=== PATIENT | female | born 1990 | race African-American/Black ===

== ENCOUNTER 2016-09-29 09:29 | Emergency (ER) | payer MEDICAID ==
[~2016-09-29] VITALS: Ht 154.9 cm; Wt 61.2 kg
[~2016-09-29 09:29] MED LIST: FAM-PREN FORTE1 CAP PO; LABETALOL HCL200 M1 PO; METOPROLOL50 M1 PO; ORETIC25 MG PO
[2016-09-29 09:36] VITALS: BP 111/80
--- NOTE | 2016-09-29 10:24 | NUR ---
PT TO BED 3 AT THIS TIME.
--- NOTE | 2016-09-29 10:43 | NUR ---
URINE DIPSTICK RESULT RELAYED TO DR SKINNER
--- NOTE | 2016-09-29 10:49 | NUR ---
PATIENT PRESENTS TO ED WITH C/O DYSURIA X1 DAY WITH LOWER BACK PAIN . PT STATES SHE HAS BURNING SENSATION WHEN SHE URINATES.DENIES N/V/D; SKIN IS PINK/WARM/DRY; AAOX4 WITH EVEN AND STEADY GAIT; LUNGS CLEAR BL; HR EVEN AND REGULAR; PT DENIES ANY FEVER, CP, SOB, OR COUGH AT THIS TIME; PATIENT STATES PAIN OF 8/10 AT THIS TIME;PATIENT POSITIONED FOR COMFORT; HOB ELEVATED; BEDRAILS UP X2; BED DOWN. NEEDS ATTENDED.ER MD MADE AWARE OF PT STATUS.
--- NOTE | 2016-09-29 10:55 | NUR ---
Patient being evaluated by DR SKINNER at bedside.
--- NOTE | 2016-09-29 11:25 | NUR ---
Patient discharged with v/s stable. Written and verbal after care instructions given and explained. Patient alert, oriented and verbalized understanding of instructions. Ambulatory with steady gait. All questions addressed prior to discharge. ID band removed. Patient advised to follow up with PMD. Rx of PYRIDIUM AND CIPRO given. Patient educated on indication of medication including possible reaction and side effects. Opportunity to ask questions provided and answered.
[2016-09-29 11:26] VITALS: BP 111/80
== END 2016-09-29 11:25 | disposition home or self-care (01) ==
LOC: MED 09:29
DX: N39.0 Urinary tract infection, site not specified (principal); I10 Essential (primary) hypertension; Z88.6 Allergy status to analgesic agent; Z88.2 Allergy status to sulfonamides; Z88.1 Allergy status to other antibiotic agents

== ENCOUNTER 2016-12-12 17:37 | Emergency (ER) | payer MEDICAID ==
[~2016-12-12] VITALS: Ht 154.9 cm; Wt 61.2 kg
[~2016-12-12 17:37] MED LIST changes: -FAM-PREN FORTE1 CAP PO; -LABETALOL HCL200 M1 PO; +METO50TA69 PO; -METOPROLOL50 M1 PO; -ORETIC25 MG PO
[2016-12-12 17:46] VITALS: BP 133/88
--- NOTE | 2016-12-12 20:01 | NUR ---
PATIENT LEFT WITHOUT BEING SEEN BY DR. TERRELL. NO FURTHER CARE PROVIDED FOR PATIENT.
== END 2016-12-12 20:01 | disposition left against medical advice (07) ==
LOC: MED 17:37
DX: R06.02 Shortness of breath (principal); Z53.21 Procedure and treatment not carried out due to patient leaving prior to being seen by health care provider

== ENCOUNTER 2017-04-23 19:00 | Emergency (ER) | payer MEDICAID ==
[~2017-04-23] VITALS: Ht 154.9 cm; Wt 65.1 kg
[2017-04-23 19:29] VITALS: BP 128/82
--- NOTE | 2017-04-23 19:53 | NUR ---
PT TAKEN TO CT FROM THE LOBBY
[2017-04-23 20:02] LABS: APPEARANCE,URINE CLEAR (CLEAR); BILIRUBIN,URINE NEGATIVE (NEGATIVE); BLOOD, URINE NEGATIVE (NEGATIVE); COLOR,URINE YELLOW (YELLOW); LEUKOCYTE ESTERASE ,URINE NEGATIVE (NEGATIVE); NITRITE, URINE NEGATIVE (NEGATIVE); PH,URINE 8.5 (5.0-9.0); UGLUCOSE NEGATIVE (NEGATIVE)
[2017-04-23 20:20] LABS: BASOPHILS # (AUTO) 0.1 K/uL (0.00-0.22); BASOPHILS % (AUTO) 1.3 % (0.0-2.0); EOSINOPHILS # (AUTO) 0.1 K/uL (0-0.4); HEMATOCRIT 42.5 % (36-48); HEMOGLOBIN 14.1 g/dL (12.0-16.0); LYMPHOCYTES # (AUTO) 1.1 K/uL (2.5-16.5); LYMPHOCYTES % (AUTO) 27.4 % (20.5-51.1); MEAN CORPUSCULAR HEMOGLOBIN 32 pg (27-31); MEAN CORPUSCULAR HGB CONC 33 g/dL (33-37); MEAN CORPUSCULAR VOLUME 95 fL (80-94); MONOCYTES # (AUTO) 0.4 K/uL (0.8-1.0); MONOCYTES % (AUTO) 9.1 % (1.7-9.3); NEUTROPHILS # (AUTO) 2.4 K/uL (1.8-7.7); NEUTROPHILS % (AUTO) 60.2 % (42.2-75.2); PLATELET COUNT (AUTO) 110 K/uL (140-450); RED BLOOD CELL COUNT(AUTO) 4.47 MIL/uL (4.20-5.40); RED CELL DISTRIBUTION WIDTH 13.4 % (11.6-13.7); WHITE BLOOD COUNT (AUTO) 4.1 K/uL (4.8-10.8)
[2017-04-23 20:34] LABS: ANION GAP 14.7 (8-16); POTASSIUM 3.7 mmol/L (3.5-5.1)
[2017-04-23 20:42] LABS: ALBUMIN 4.3 g/dL (3.4-5.0); TOTAL BILIRUBIN 0.4 mg/dL (0.0-1.0)
--- NOTE | 2017-04-23 21:41 | NUR ---
PT TAKEN TO BED 4
[2017-04-23] MEDS ORDERED: MORPHINE SULFATE 4 MG/ML SYR IM ONE (22:05)
--- NOTE | 2017-04-23 22:33 | NUR ---
Dr. San evaluating patient at bedside.
[2017-04-23 23:05] VITALS: BP 124/78
--- NOTE | 2017-04-23 23:07 | NUR ---
Patient discharged with v/s stable. Written and verbal after care instructions given and explained. Patient alert, oriented and verbalized understanding of instructions. Ambulatory with to home. All questions addressed prior to discharge. ID band removed. Patient advised to follow up with PMD. Rx of given. Patient educated on indication of medication including possible reaction and side effects. Opportunity to ask questions provided and answered.
== END 2017-04-23 23:07 | disposition home or self-care (01) ==
LOC: MED 19:00
DX: N83.202 Unspecified ovarian cyst, left side (principal); Z88.6 Allergy status to analgesic agent; Z88.1 Allergy status to other antibiotic agents; Z88.8 Allergy status to other drugs, medicaments and biological substances; I10 Essential (primary) hypertension
CPT/HCPCS: 36415; 74176; 80053; 81003; 81025; 83690; 85025; 96372; 99285; J2270

== ENCOUNTER 2017-11-14 06:42 | Emergency (ER) | payer OTHER, MEDICAID ==
[~2017-11-14] VITALS: Ht 154.9 cm; Wt 65.8 kg
[~2017-11-14 06:42] MED LIST changes: +METO50TA20 PO; -METO50TA69 PO
[2017-11-14 06:45] VITALS: BP 135/94
--- NOTE | 2017-11-14 06:53 | NUR ---
Patient ambulated to bed 4. RN evaluating patient at bedside.
--- NOTE | 2017-11-14 06:55 | NUR ---
PATIENT IS A 26 Y/O FEMALE WHO PRESENTS TO THE ED C/O SORETHROAT. PT REPORTS RIGHT PINKEYE WITH D/C. PT REPORTS 8/10 ACHING EYE AND THROAT PAIN THAT DOES NOT RADIATE. PT DENIES CP, SOB, N/V/D. NOTED D/C TO RIGHT EYE. PT AAOX4, RR EVEN/UNLABORED. PT REPOSITIONED FOR COMFORT, BED IN LOWEST POSITION. ER MD DR. AIKEN NOTIFIED. WILL CONTINUE TO MONITOR.
[2017-11-14 07:26] VITALS: BP 133/85
--- NOTE | 2017-11-14 07:26 | NUR ---
Patient discharged with v/s stable. Written and verbal after care instructions given and explained. Patient alert, oriented and verbalized understanding of instructions. Ambulatory with steady gait. All questions addressed prior to discharge. ID band removed. Patient advised to follow up with PMD. Rx of CODEINE, CIPROFLOXACIN OPHTHALMIC SOLUTION, AND AMOXICILLIN 500 MG given. Patient educated on indication of medication including possible reaction and side effects. Opportunity to ask questions provided and answered.
== END 2017-11-14 07:26 | disposition home or self-care (01) ==
LOC: MED 06:42
DX: J03.90 Acute tonsillitis, unspecified (principal); H10.9 Unspecified conjunctivitis; I10 Essential (primary) hypertension; Z88.1 Allergy status to other antibiotic agents; Z88.6 Allergy status to analgesic agent
CPT/HCPCS: 99283

== ENCOUNTER 2017-11-21 20:23 | Emergency (ER) | payer OTHER, MEDICAID ==
[~2017-11-21] VITALS: Ht 154.9 cm; Wt 65.8 kg
[2017-11-21 20:32] VITALS: BP 125/77
--- NOTE | 2017-11-21 20:39 | NUR ---
to jake, a/w bed and for xray, via w/cloreto ermd noted
--- NOTE | 2017-11-21 20:44 | NUR ---
PATIENT WHEELED TO CHAIR B
[2017-11-21] MEDS ORDERED: fentaNYL 0.05 MG/ML VIAL IM ONE (21:15)
--- NOTE | 2017-11-21 21:23 | NUR ---
PATIENT TO XRAY
[2017-11-21 22:51] VITALS: BP 125/77
== END 2017-11-21 22:51 | disposition home or self-care (01) ==
LOC: MED 20:23
DX: S83.91XA Sprain of unspecified site of right knee, initial encounter (principal); I10 Essential (primary) hypertension; Z79.899 Other long term (current) drug therapy; Z88.2 Allergy status to sulfonamides; Z88.8 Allergy status to other drugs, medicaments and biological substances; W50.0XXA Accidental hit or strike by another person, initial encounter; Y93.89 Activity, other specified; Y92.89 Other specified places as the place of occurrence of the external cause; Y99.8 Other external cause status
CPT/HCPCS: 73562; 73660; 96372; 99284; J3010

== ENCOUNTER 2017-12-17 23:17 | Emergency (ER) | payer OTHER, MEDICAID ==
[~2017-12-17] VITALS: Ht 154.9 cm; Wt 64.6 kg
[2017-12-17 23:24] VITALS: BP 110/80
--- NOTE | 2017-12-17 23:30 | NUR ---
27 Y/O F W/C/O LOW BACK PAIN X TODAY. PT DENIES ANY DYSURIA, FEVER OR CHILLS. ER MADE AWARE.
[2017-12-17] MEDS ORDERED: ACETAMINOPHEN EXTRA STRENGTH 500 MG TAB PO ONE (23:40)
[2017-12-18 00:05] VITALS: BP 110/80
--- NOTE | 2017-12-18 00:05 | NUR ---
Patient discharged with v/s stable. Written and verbal after care instructions given and explained. Patient alert, oriented and verbalized understanding of instructions. Ambulatory with steady gait. All questions addressed prior to discharge. ID band removed. Patient advised to follow up with PMD. Rx of TYLENOL WITH CODEINE, AND MACROBID given. Patient educated on indication of medication including possible reaction and side effects. Opportunity to ask questions provided and answered.
[2017-12-18 00:19] LABS: APPEARANCE,URINE SL CLOUDY (CLEAR); BILIRUBIN,URINE NEGATIVE (NEGATIVE); BLOOD, URINE NEGATIVE (NEGATIVE); COLOR,URINE YELLOW (YELLOW); LEUKOCYTE ESTERASE ,URINE NEGATIVE (NEGATIVE); NITRITE, URINE NEGATIVE (NEGATIVE); PH,URINE 6.5 (5.0-9.0); UGLUCOSE NEGATIVE (NEGATIVE)
== END 2017-12-18 00:05 | disposition home or self-care (01) ==
LOC: MED 23:17
DX: M54.5 Low back pain (principal); R10.9 Unspecified abdominal pain; I10 Essential (primary) hypertension; Z88.6 Allergy status to analgesic agent; Z88.2 Allergy status to sulfonamides; Z88.8 Allergy status to other drugs, medicaments and biological substances; Z98.890 Other specified postprocedural states
CPT/HCPCS: 81003; 81025; 99283

== ENCOUNTER 2018-08-19 12:14 | Emergency (ER) | payer MEDICAID, OTHER ==
[~2018-08-19] VITALS: Ht 154.9 cm; Wt 59.0 kg
[2018-08-19 12:24] VITALS: BP 113/80
[2018-08-19] MEDS ORDERED: KETOROLAC 60 MG/2 ML VIAL IM ONE (13:25)
[2018-08-19 14:41] VITALS: BP 116/88
== END 2018-08-19 14:41 | disposition home or self-care (01) ==
LOC: MED 12:14
DX: S93.402A Sprain of unspecified ligament of left ankle, initial encounter (principal); I10 Essential (primary) hypertension; Z88.8 Allergy status to other drugs, medicaments and biological substances; W01.0XXA Fall on same level from slipping, tripping and stumbling without subsequent striking against object, initial encounter; Y93.89 Activity, other specified; Y92.89 Other specified places as the place of occurrence of the external cause; Y99.8 Other external cause status
CPT/HCPCS: 73610; 81025; 96372; 99283; J1885

== ENCOUNTER 2018-12-25 20:27 | Emergency (ER) | payer MEDICAID ==
[~2018-12-25] VITALS: Ht 154.9 cm; Wt 65.8 kg
[2018-12-25 20:31] VITALS: BP 160/98
--- NOTE | 2018-12-25 20:31 | NUR ---
TO BED # 08 AMBULATORY
--- NOTE | 2018-12-25 20:32 | NUR ---
BIB SELF WITH C/O HEADACHE AND BODY ACHES SINCE YESTERDAY. DENIES FEVERS, COUGH, NVD. SPEECH CLEAR, PERRL. BED IN LOW LOCKED POSITION. PATIENT POSITIONED FOR COMFORT. ERMD AWARE.
--- NOTE | 2018-12-25 20:37 | NUR ---
DR ROSEN AT BEDSIDE.
[2018-12-25] MEDS ORDERED: fentaNYL 0.05 MG/ML VIAL IM ONE (20:40)
[2018-12-25] MEDS ORDERED: methylPREDNISolone SS 125 MG/2 ML VIAL IM ONE (20:40)
[2018-12-25 21:46] VITALS: BP 142/95
--- NOTE | 2018-12-25 21:47 | NUR ---
Patient discharged with v/s stable. Written and verbal after care instructions given and explained. Patient alert, oriented and verbalized understanding of instructions. Ambulatory with steady gait. All questions addressed prior to discharge. ID band removed. Patient advised to follow up with PMD. Rx of TRAMADOL, PREDNISONE given. Patient educated on indication of medication including possible reaction and side effects. Opportunity to ask questions provided and answered.
== END 2018-12-25 21:47 | disposition home or self-care (01) ==
LOC: MED 20:27
DX: M32.9 Systemic lupus erythematosus, unspecified (principal); I10 Essential (primary) hypertension; Z88.1 Allergy status to other antibiotic agents; Z88.2 Allergy status to sulfonamides; Z88.8 Allergy status to other drugs, medicaments and biological substances
CPT/HCPCS: 96372; 99283; J2930; J3010

== ENCOUNTER 2019-03-12 22:40 | Emergency (ER) | payer MEDICAID ==
[~2019-03-12] VITALS: Ht 154.9 cm; Wt 66.2 kg
[2019-03-12 22:47] VITALS: BP 130/76
[2019-03-13 00:47] LABS: APPEARANCE,URINE CLEAR (CLEAR); BILIRUBIN,URINE NEGATIVE (NEGATIVE); BLOOD, URINE NEGATIVE (NEGATIVE); COLOR,URINE YELLOW (YELLOW); LEUKOCYTE ESTERASE ,URINE NEGATIVE (NEGATIVE); NITRITE, URINE NEGATIVE (NEGATIVE); UGLUCOSE NEGATIVE (NEGATIVE)
[2019-03-13 00:56] LABS: RBC,URINE 0-5 /HPF (0-5); WBC,URINE 0-5 /HPF (0-5)
[2019-03-13 01:05] VITALS: BP 128/72
== END 2019-03-13 01:05 | disposition left against medical advice (07) ==
LOC: MED 22:40
DX: M79.10 Myalgia, unspecified site (principal); I10 Essential (primary) hypertension; M32.9 Systemic lupus erythematosus, unspecified; Z88.6 Allergy status to analgesic agent; Z88.8 Allergy status to other drugs, medicaments and biological substances; Z88.1 Allergy status to other antibiotic agents
CPT/HCPCS: 81001; 81025; 87086; 99283

== ENCOUNTER 2019-04-03 20:41 | Emergency (ER) | payer MEDICAID ==
[~2019-04-03] VITALS: Ht 154.9 cm; Wt 66.2 kg
[2019-04-03 20:49] VITALS: BP 130/89
--- NOTE | 2019-04-03 20:49 | NUR ---
TO BED # 04 AMBULATORY
--- NOTE | 2019-04-03 21:07 | NUR ---
28F C/O DYSURIA, FREQUENCY, URGENCY X 2 DAYS. DENIES FEVERS. STATES BLOOD ON TIOLET PAPER AFTER URINATING. STATES BL PELVIC DISCOMFORT.
[2019-04-03 22:05] VITALS: BP 130/89
--- NOTE | 2019-04-03 22:05 | NUR ---
Patient discharged with v/s stable. Written and verbal after care instructions given and explained. Patient alert, oriented and verbalized understanding of instructions. Ambulatory with steady gait. All questions addressed prior to discharge. ID band removed. Patient advised to follow up with PMD. Rx of MACROBID, PYRIDIUM WAS GIVEN given. Patient educated on indication of medication including possible reaction and side effects. Opportunity to ask questions provided and answered.
== END 2019-04-03 22:05 | disposition home or self-care (01) ==
LOC: MED 20:41
DX: N39.0 Urinary tract infection, site not specified (principal); I10 Essential (primary) hypertension; Z88.1 Allergy status to other antibiotic agents; Z88.2 Allergy status to sulfonamides; Z88.8 Allergy status to other drugs, medicaments and biological substances
CPT/HCPCS: 81002; 81025; 99283

== ENCOUNTER 2019-04-21 14:22 | Emergency (ER) | payer MEDICAID ==
[~2019-04-21] VITALS: Ht 154.9 cm; Wt 65.0 kg
[2019-04-21 14:34] VITALS: BP 119/92
--- NOTE | 2019-04-21 14:42 | NUR ---
BIB SELF. AAO X4 C/O BUG BITE TO LEFT LATERAL THIGH AND LEFT BACK OF THE THIGH X YESTERDAY. PT STATES ITCHINESS TO THE SITE. DENIES FEVER, N/V/D, SOB. PMH: LUPUS MED RX: DENIES. ALLERGY: SULFA, IBUPROFEN, TRIMETHOPRIM. PATIENT STATES PAIN OF 0/10 AT THIS TIME; PATIENT POSITIONED FOR COMFORT; HOB ELEVATED; BEDRAILS UP X1; BED DOWN. ER MD MADE AWARE OF PT STATUS.
[2019-04-21 15:14] VITALS: BP 119/92
== END 2019-04-21 15:14 | disposition home or self-care (01) ==
LOC: MED 14:22
DX: S70.362A Insect bite (nonvenomous), left thigh, initial encounter (principal); L50.9 Urticaria, unspecified; I10 Essential (primary) hypertension; M32.9 Systemic lupus erythematosus, unspecified; Z88.6 Allergy status to analgesic agent; Z88.1 Allergy status to other antibiotic agents; W57.XXXA Bitten or stung by nonvenomous insect and other nonvenomous arthropods, initial encounter; Y93.89 Activity, other specified; Y92.89 Other specified places as the place of occurrence of the external cause; Y99.8 Other external cause status
CPT/HCPCS: 99283

== ENCOUNTER 2019-07-14 22:25 | Emergency (ER) | payer MEDICAID ==
[~2019-07-14] VITALS: Ht 154.9 cm; Wt 61.2 kg
[2019-07-14 22:35] VITALS: BP 141/90
--- NOTE | 2019-07-14 22:35 | NUR ---
TO BED # 02 AMBULATORY
[2019-07-14] MEDS ORDERED: predniSONE 20 MG TAB ONE (22:59)
[2019-07-14] MEDS ORDERED: IBUPROFEN 800 MG TAB ONE (23:00)
[2019-07-15 09:51] LABS: ANION GAP 10.5 (8-16); CARBON DIOXIDE 30.6 mmol/L (21-32); POTASSIUM 4.1 mmol/L (3.5-5.1)
[2019-07-15 09:52] LABS: ALBUMIN 4.1 g/dL (3.4-5.0); CREATININE 0.8 mg/dL (0.6-1.3); TOTAL BILIRUBIN 0.4 mg/dL (0.0-1.0)
[2019-07-15 09:53] LABS: APPEARANCE,URINE CLEAR (CLEAR); BILIRUBIN,URINE NEGATIVE (NEGATIVE); BLOOD, URINE NEGATIVE (NEGATIVE); COLOR,URINE YELLOW (YELLOW); LEUKOCYTE ESTERASE ,URINE NEGATIVE (NEGATIVE); NITRITE, URINE NEGATIVE (NEGATIVE); PH,URINE 6.5 (5.0-9.0); UGLUCOSE NEGATIVE (NEGATIVE)
[2019-07-15 09:56] LABS: BASOPHILS % (AUTO) 0.8 % (0.0-2.0); EOSINOPHILS # (AUTO) 0.1 K/uL (0-0.4); EOSINOPHILS % (AUTO) 1.8 % (0.0-4.0); HEMATOCRIT 43.9 % (36-48); HEMOGLOBIN 14.5 g/dL (12.0-16.0); LYMPHOCYTES # (AUTO) 1.2 K/uL (2.5-16.5); MEAN CORPUSCULAR HEMOGLOBIN 33 pg (27-31); MEAN CORPUSCULAR HGB CONC 33 g/dL (33-37); MEAN CORPUSCULAR VOLUME 98.3 fL (80-94); MONOCYTES # (AUTO) 0.2 K/uL (0.8-1.0); MONOCYTES % (AUTO) 7.8 % (1.7-9.3); NEUTROPHILS # (AUTO) 1.4 K/uL (1.8-7.7); NEUTROPHILS % (AUTO) 48.6 % (42.2-75.2); PLATELET COUNT (AUTO) 117 K/uL (140-450); RED BLOOD CELL COUNT(AUTO) 4.46 MIL/uL (4.20-5.40); RED CELL DISTRIBUTION WIDTH 14.1 % (11.6-13.7); WHITE BLOOD COUNT (AUTO) 2.9 K/uL (4.8-10.8)
== END 2019-07-14 23:45 | disposition home or self-care (01) ==
LOC: MED 22:25
DX: M32.19 Other organ or system involvement in systemic lupus erythematosus (principal); M79.18 Myalgia, other site; I10 Essential (primary) hypertension; Z88.8 Allergy status to other drugs, medicaments and biological substances; Z88.2 Allergy status to sulfonamides; Z88.1 Allergy status to other antibiotic agents
CPT/HCPCS: 36415; 80053; 81003; 85025; 99283; J7512

== ENCOUNTER 2020-02-29 04:44 | Emergency (ER) | payer MEDICAID, OTHER ==
[~2020-02-29] VITALS: Ht 154.9 cm; Wt 66.7 kg
[2020-02-29 04:48] VITALS: BP 125/75
--- NOTE | 2020-02-29 04:51 | NUR ---
PT AMBULATED TO BED #7
--- NOTE | 2020-02-29 04:56 | NUR ---
Dr. Vizcaino examining patient.
[2020-02-29] MEDS ORDERED: LIDOCAINE/EPI 1% 1:100000 20 ML VIAL INJ STA (04:58)
--- NOTE | 2020-02-29 05:04 | NUR ---
29F PRESENTS TO ED WITH C/O ABSCESS TO LT INNER THIGH X 1 DAY. DENIES ANY INJURY OR TRAUMA. RR EVEN AND UNLABORED. DENIES SOB/COUGH. DENIES N/V/D. PT PLACED IN GOWN AND GIVEN A BLANKET FOR PRIVACY. PUSH[address] STRE[address] MADE AWARE OF PT SITUATION. MEDHX- LUPUS ALLX- IBUPROFEN AND SULFA NEGATIVE FOR COVID SCREENING. PT WEARING MASK.
[2020-02-29 05:07] VITALS: BP 125/75
--- NOTE | 2020-02-29 05:08 | NUR ---
Female Engineering Patternmaker accompanied female patient for abscess drainage procedure.
--- NOTE | 2020-02-29 05:39 | NUR ---
Patient discharged with v/s stable. Written and verbal after care instructions given and explained. Patient verbalized understanding. Ambulatory with steady gait. All questions addressed prior to discharge. Advised to follow up with PMD.
== END 2020-02-29 05:39 | disposition home or self-care (01) ==
LOC: MED 04:44
DX: L02.214 Cutaneous abscess of groin (principal); I10 Essential (primary) hypertension; Z88.1 Allergy status to other antibiotic agents; Z88.2 Allergy status to sulfonamides; Z88.6 Allergy status to analgesic agent
CPT/HCPCS: 10060; 99282; J2001

== ENCOUNTER 2020-05-05 09:30 | Emergency (ER) | payer OTHER ==
[~2020-05-05] VITALS: Ht 154.9 cm; Wt 66.2 kg
[2020-05-05 09:39] VITALS: BP 125/81
--- NOTE | 2020-05-05 09:42 | NUR ---
PT C/O RECURRENT LEFT GROIN ABSCESS WITH TENDERNESS FOR 2 DAYS. PT WAS SEEN IN OUR ER ON 03/01/2020 AND DID I&D ON LEFT GROIN ABSCESS. PT STATES SUPINE POSITION MAKES THE PAIN WORSE, BUT DENIES DRAINAGE OR WARMNESS TO TOUCH. DENIES FEVER, CHILLS, N/V/D, OR ABDOMINAL PAIN/BACK PAIN.
[2020-05-05] MEDS ORDERED: LIDOCAINE MPF 1% 5 ML ONE (10:06)
[2020-05-05] MEDS ORDERED: LIDOCAINE 2% 1000 MG/50 ML VIAL INJ ONE (10:10)
[2020-05-05 10:40] VITALS: BP 118/78
--- NOTE | 2020-05-05 10:40 | NUR ---
Patient discharged with v/s stable. Written and verbal after care instructions given and explained. Patient alert, oriented and verbalized understanding of instructions. Ambulatory with steady gait. All questions addressed prior to discharge. ID band removed. Patient advised to follow up with PMD. Rx of Doxycycline and Tramadol given. Patient educated on indication of medication including possible reaction and side effects. Opportunity to ask questions provided and answered.
== END 2020-05-05 10:40 | disposition home or self-care (01) ==
LOC: MED 09:30
DX: L72.9 Follicular cyst of the skin and subcutaneous tissue, unspecified (principal); I10 Essential (primary) hypertension; Z88.1 Allergy status to other antibiotic agents; Z88.8 Allergy status to other drugs, medicaments and biological substances; Z88.6 Allergy status to analgesic agent
CPT/HCPCS: 10060; 99283; J2001

== ENCOUNTER 2020-09-23 10:25 | Emergency (ER) | payer OTHER ==
[~2020-09-23] VITALS: Ht 154.9 cm; Wt 68.5 kg
[2020-09-23 10:26] VITALS: BP 121/91
--- NOTE | 2020-09-23 10:35 | NUR ---
Dr. Walton is evaluating the patient at bedside.
--- NOTE | 2020-09-23 10:44 | NUR ---
29 Y/O FEMALE C/O BILATERAL THIGH PAIN THAT RADIATES DOWN EXTREMITIES AND UP TOWARDS PELVIS, 8/10 PAIN. PT HAS MEDICAL HX OF LUPUS DX IN 2018, TAKES TYLENOL EXTRA STRENGTH PRN. THIGHS TENDER UPON PALPITATION. DENIES ANY CONTACT WITH ANY COVID POSITIVE PATIENTS AND NO SOB, CHEST PAIN OR COUGH PRESENT. LMP: 09/20/20. A&O X4.
--- NOTE | 2020-09-23 10:57 | NUR ---
URINE CANNOT BE COLLECTED AT THIS TIME. SPECIMEN CUP WAS PUT AT BEDSIDE WITH CUP OF WATER, PT IS NOT ON ANY NPO RESTRICTIONS AT THIS TIME.
[2020-09-23] MEDS: KETOROLAC 30 MG/ML VIAL IVP ONE (11:04)
--- NOTE | 2020-09-23 11:06 | NUR ---
PT WAS GIVEN 1ML OF 30MG 1ML TORADOL. PT WAS PUT ON CARDIAC, BP AND O2 MONITOR TO EVALUATE.
[2020-09-23 11:07] LABS: HEMATOCRIT 41.4 % (36-48); MEAN CORPUSCULAR HEMOGLOBIN 33 pg (27-31); MEAN CORPUSCULAR HGB CONC 34 g/dL (33-37); MEAN CORPUSCULAR VOLUME 96.1 fL (80-94); PLATELET COUNT (AUTO) 133 K/uL (140-450); RED BLOOD CELL COUNT(AUTO) 4.31 MIL/uL (4.20-5.40); RED CELL DISTRIBUTION WIDTH 13.5 % (11.6-13.7); WHITE BLOOD COUNT (AUTO) 2.4 K/uL (4.8-10.8)
[2020-09-23 11:22] LABS: ANION GAP 11.8 (8-16); CARBON DIOXIDE 26.2 mmol/L (21-32); CREATININE 0.9 mg/dL (0.6-1.3); TOTAL BILIRUBIN 0.4 mg/dL (0.0-1.0)
[2020-09-23 11:34] LABS: BASOPHILS % (MANUAL) 0 % (0-2); EOSINOPHILS % (MANUAL) 3 % (0-4); LYMPHOCYTES % (MANUAL) 54 % (20-46); MONOCYTES % (MANUAL) 8 % (5-12)
[2020-09-23 14:03] VITALS: BP 119/86
[2020-09-23 15:31] LABS: APPEARANCE,URINE HAZY (CLEAR); BILIRUBIN,URINE NEGATIVE (NEGATIVE); BLOOD, URINE NEGATIVE (NEGATIVE); COLOR,URINE YELLOW (YELLOW); LEUKOCYTE ESTERASE ,URINE TRACE (NEGATIVE); NITRITE, URINE POSITIVE (NEGATIVE); PH,URINE 5.5 (5.0-9.0); UGLUCOSE NEGATIVE (NEGATIVE)
[2020-09-23 15:52] LABS: YEAST,URINE None Seen /HPF (None Seen)
--- NOTE | 2020-09-23 20:25 | NUR ---
Late entry --- Pt returned to ER for new RX Keflex. Patient educated on indication of medication including possible reaction and side effects. Opportunity to ask questions provided and answered.
== END 2020-09-23 14:03 | disposition home or self-care (01) ==
LOC: MED 10:25
DX: M32.9 Systemic lupus erythematosus, unspecified (principal); M54.9 Dorsalgia, unspecified; M25.542 Pain in joints of left hand; M25.541 Pain in joints of right hand; M25.531 Pain in right wrist; M25.532 Pain in left wrist; M25.562 Pain in left knee; M25.561 Pain in right knee; M79.645 Pain in left finger(s); M79.642 Pain in left hand; I10 Essential (primary) hypertension; Z88.6 Allergy status to analgesic agent; Z88.2 Allergy status to sulfonamides; Z88.8 Allergy status to other drugs, medicaments and biological substances
CPT/HCPCS: 36415; 80053; 81001; 81025; 85025; 86140; 87086; 96374; 99283; J1885

== ENCOUNTER 2020-10-04 11:23 | Emergency (ER) | payer OTHER ==
[~2020-10-04] VITALS: Ht 154.9 cm; Wt 68.5 kg
[2020-10-04 11:27] VITALS: BP 120/83
--- NOTE | 2020-10-04 11:33 | NUR ---
PATIENT AMBULATED TO BED 2.
[2020-10-04] MEDS ORDERED: CIPROFLOXACIN 250 MG TAB PO ONE (11:50)
[2020-10-04] MEDS ORDERED: PHENAZOPYRIDINE 100 MG TAB PO ONE (11:50)
[2020-10-04 12:28] VITALS: BP 124/81
--- NOTE | 2020-10-04 12:29 | NUR ---
Patient discharged with v/s stable. Written and verbal after care instructions given and explained. Patient alert, oriented and verbalized understanding of instructions. Ambulatory with steady gait. All questions addressed prior to discharge. ID band removed. Patient advised to follow up with PMD. Rx of Pyridium 200mg and Cipro 500mg given. Patient educated on indication of medication including possible reaction and side effects. Opportunity to ask questions provided and answered.
== END 2020-10-04 12:29 | disposition home or self-care (01) ==
LOC: MED 11:23
DX: N30.90 Cystitis, unspecified without hematuria (principal); I10 Essential (primary) hypertension; Z88.6 Allergy status to analgesic agent; Z88.2 Allergy status to sulfonamides; Z88.8 Allergy status to other drugs, medicaments and biological substances; Z79.899 Other long term (current) drug therapy
CPT/HCPCS: 99283

== ENCOUNTER 2020-10-13 19:40 | Inpatient (IN) | payer OTHER, SELFPAY ==
[~2020-10-13] VITALS: Ht 154.9 cm; Wt 68.5 kg
[2020-10-13 19:43] VITALS: BP 110/51
--- NOTE | 2020-10-13 19:55 | NUR ---
PT AMBULATED TO BED 3 WITH A STEADY GAIT.
--- NOTE | 2020-10-13 20:01 | NUR ---
29 Y/O FEMALE C/O RT FLANK PAIN X 1 WEEK RADIATING TO BACK. PT STATES 8/10 PAIN. NOTED RED CIRCULAR RASH AROUND UPPER CHEST AND LEFT ARM. RX: TYLENOL AND BENADRYL WITH NO RELIEF ALLERGIES: SULFAS, IBURPOFEN, TRIMETHOPRIM. PMH:LUPUS, C/S X 3.
--- NOTE | 2020-10-13 20:15 | NUR ---
ERMD AT BEDSIDE EXAMINING PT
--- NOTE | 2020-10-13 20:30 | NUR ---
LAB AT BEDSIDE
[2020-10-13 20:43] LABS: BASOPHILS % (AUTO) 0.8 % (0.0-2.0); EOSINOPHILS # (AUTO) 0.1 K/uL (0-0.4); EOSINOPHILS % (AUTO) 2.4 % (0.0-4.0); HEMATOCRIT 39.3 % (36-48); HEMOGLOBIN 13.1 g/dL (12.0-16.0); LYMPHOCYTES # (AUTO) 1.4 K/uL (2.5-16.5); LYMPHOCYTES % (AUTO) 42.7 % (20.5-51.1); MEAN CORPUSCULAR HEMOGLOBIN 32 pg (27-31); MEAN CORPUSCULAR HGB CONC 33 g/dL (33-37); MEAN CORPUSCULAR VOLUME 95.6 fL (80-94); MONOCYTES # (AUTO) 0.3 K/uL (0.8-1.0); MONOCYTES % (AUTO) 8.8 % (1.7-9.3); NEUTROPHILS # (AUTO) 1.5 K/uL (1.8-7.7); NEUTROPHILS % (AUTO) 45.3 % (42.2-75.2); PLATELET COUNT (AUTO) 119 K/uL (140-450); RED BLOOD CELL COUNT(AUTO) 4.11 MIL/uL (4.20-5.40); RED CELL DISTRIBUTION WIDTH 13.5 % (11.6-13.7); WHITE BLOOD COUNT (AUTO) 3.2 K/uL (4.8-10.8)
[2020-10-13 20:52] LABS: APPEARANCE,URINE SL CLOUDY (CLEAR); BILIRUBIN,URINE 1+ (NEGATIVE); BLOOD, URINE NEGATIVE (NEGATIVE); COLOR,URINE AMBER (YELLOW); LEUKOCYTE ESTERASE ,URINE TRACE (NEGATIVE); NITRITE, URINE NEGATIVE (NEGATIVE); UGLUCOSE NEGATIVE (NEGATIVE)
[2020-10-13 21:06] LABS: ALBUMIN 3.6 g/dL (3.4-5.0); ANION GAP 12.1 (8-16); CARBON DIOXIDE 26.9 mmol/L (21-32); CREATININE 1.1 mg/dL (0.6-1.3); TOTAL BILIRUBIN 0.4 mg/dL (0.0-1.0)
[2020-10-13 21:16] LABS: RBC,URINE 0-5 /HPF (0-5)
[2020-10-13] MEDS ORDERED: HYDROcodone/APAP 5/325 MG 1 TAB TAB PO ONE (21:40)
[2020-10-13] MEDS ORDERED: cefTRIAXone 1,000 MG VIAL ONE (21:42)
[2020-10-13] MEDS ORDERED: POTASSIUM CHLORIDE 40 MEQ, LIDOCAINE MPF 1% 25 MG in NACL 0.9% 250 ML IV PRN (22:55)
[2020-10-13] MEDS ORDERED: ONDANSETRON 4 MG/2 ML VIAL IM/IVP PRN (22:55)
[2020-10-13] MEDS ORDERED: HYDROcodone/APAP 5/325 MG 1 TAB TAB PO PRN (22:55)
[2020-10-13] MEDS ORDERED: DOCUSATE SODIUM 100 MG GELCAP PO PRN (22:55)
[2020-10-13] MEDS ORDERED: MAG SULF 2000 MG/WATER PREMIX 50 ML IV PRN (22:55)
[2020-10-13] MEDS ORDERED: SODIUM PHOS / POTASSIUM PHOS 1 PKT PDR PO PRN (22:55)
[2020-10-13] MEDS ORDERED: ACETAMINOPHEN 325 MG TAB PO PRN (22:55)
[2020-10-13] MEDS ORDERED: PYR100 PO (23:13)
[2020-10-13] MEDS ORDERED: CIPR500T4 PO (23:13)
[2020-10-13] MEDS ORDERED: CEPH250C16 PO (23:13)
[2020-10-13 23:29] LABS: MAGNESIUM 1.6 mg/dL (1.8-2.4); PHOSPHORUS 3.4 mg/dL (2.5-4.9)
--- NOTE | 2020-10-13 23:34 | NUR ---
Patient will be admitted to care of DR SORTO. Admited to [facility]. Will go to [id number]. Belongings list completed. Report to NAHOMI OLIVER.
[2020-10-14] VITALS: BP 112/70
[2020-10-14 04:00] VITALS: BP 104/66
[2020-10-14] MEDS: MORPHINE SULFATE 2 MG/ML SYR IVP PRN ×3 (06:20→22:25)
[2020-10-14] MEDS: NACL 0.9% 1,000 ML IV SCH ×3 (06:26→14:44)
[2020-10-14 07:45] LABS: BASOPHILS % (AUTO) 1.3 % (0.0-2.0); EOSINOPHILS # (AUTO) 0.1 K/uL (0-0.4); EOSINOPHILS % (AUTO) 2.7 % (0.0-4.0); HEMATOCRIT 40.3 % (36-48); HEMOGLOBIN 13.4 g/dL (12.0-16.0); LYMPHOCYTES # (AUTO) 1.7 K/uL (2.5-16.5); MEAN CORPUSCULAR HEMOGLOBIN 32 pg (27-31); MEAN CORPUSCULAR HGB CONC 33 g/dL (33-37); MEAN CORPUSCULAR VOLUME 95.9 fL (80-94); MONOCYTES # (AUTO) 0.4 K/uL (0.8-1.0); MONOCYTES % (AUTO) 11.7 % (1.7-9.3); NEUTROPHILS # (AUTO) 1.1 K/uL (1.8-7.7); NEUTROPHILS % (AUTO) 33.3 % (42.2-75.2); PLATELET COUNT (AUTO) 125 K/uL (140-450); WHITE BLOOD COUNT (AUTO) 3.3 K/uL (4.8-10.8)
--- NOTE | 2020-10-14 07:46 | NUR ---
PATIENT IS AOX4, VITAL SIGNS STABLE, RESPIRATIONS EVEN AND UNLABORED ON ROOM AIR. DENIES PAIN. REPORTS RELIEF FROM RIGHT FLANK PAIN WITH PRN PAIN MEDICATIONS. AMBULATED TO BATHROOM, VOIDED WITHOUT DIFFICULTY. NOTED DRY SCABS ON LEFT ARM AND CHEST, DENIES ITCHINESS. IV FLUIDS INFUSING. UPDATED PATIENT ON PLAN OF CARE. WILL CONTINUE TO MONITOR.
[2020-10-14 07:47] LABS: ANION GAP 11.3 (8-16); CARBON DIOXIDE 26.4 mmol/L (21-32); CREATININE 0.8 mg/dL (0.6-1.3); POTASSIUM 3.7 mmol/L (3.5-5.1)
[2020-10-14 08:00] VITALS: BP 107/59
--- NOTE | 2020-10-14 10:36 | NUR ---
PATIENT HAS BEEN SCREENED AND CATEGORIZED MODERATE NUTRITION RISK. PATIENT WILL BE SEEN WITHIN 3-5 DAYS OF ADMISSION. 10/16/20 - 10/18/20 HAYDEE TAN MBA, RD
[2020-10-14 12:00] VITALS: BP 120/79
--- NOTE | 2020-10-14 14:45 | NUR ---
CXR DONE AND NOTIFIED DR MEHTA OF RESULTS. Addendum: 10/14/20 at 1452 by Agency 09 MELODY RN WRONG PATIENT.
[2020-10-14 16:00] VITALS: BP 117/74
--- NOTE | 2020-10-14 18:32 | NUR ---
PATIENT'S PAIN HAS BEEN CONTROLLED THROUGHOUT THE DAY. AT 1820, REPORTED INCREASING PAIN IN RIGHT FLANK, MEDICATED WITH PRN MORPHINE. AMBULATED TO BATHROOM MULTIPLE TIMES TODAY, DENIES DYSURIA, NO BM TODAY. IV FLUIDS INFUSING. TOLERATED ALL MEALS WELL WITH NO N/V. ALL QUESTIONS ANSWERED. WILL ENDORSE TO NIGHT RN.
[2020-10-14 20:00] VITALS: BP 118/68
[2020-10-15] VITALS: BP 115/70
[2020-10-15] MEDS: NACL 0.9% 1,000 ML IV SCH (00:55)
[2020-10-15 04:00] VITALS: BP 113/75
[2020-10-15 06:20] LABS: BASOPHILS % (AUTO) 0.2 % (0.0-2.0); EOSINOPHILS # (AUTO) 0.1 K/uL (0-0.4); EOSINOPHILS % (AUTO) 1.8 % (0.0-4.0); HEMATOCRIT 36.8 % (36-48); HEMOGLOBIN 12.5 g/dL (12.0-16.0); LYMPHOCYTES # (AUTO) 1.7 K/uL (2.5-16.5); LYMPHOCYTES % (AUTO) 52.7 % (20.5-51.1); MEAN CORPUSCULAR HEMOGLOBIN 32 pg (27-31); MEAN CORPUSCULAR HGB CONC 34 g/dL (33-37); MEAN CORPUSCULAR VOLUME 95.4 fL (80-94); MONOCYTES # (AUTO) 0.2 K/uL (0.8-1.0); MONOCYTES % (AUTO) 6.7 % (1.7-9.3); NEUTROPHILS # (AUTO) 1.3 K/uL (1.8-7.7); NEUTROPHILS % (AUTO) 38.6 % (42.2-75.2); PLATELET COUNT (AUTO) 126 K/uL (140-450); RED BLOOD CELL COUNT(AUTO) 3.86 MIL/uL (4.20-5.40); RED CELL DISTRIBUTION WIDTH 13.2 % (11.6-13.7); WHITE BLOOD COUNT (AUTO) 3.3 K/uL (4.8-10.8)
[2020-10-15 06:35] LABS: ANION GAP 10.4 (8-16); CARBON DIOXIDE 24.5 mmol/L (21-32); CREATININE 0.8 mg/dL (0.6-1.3); POTASSIUM 3.9 mmol/L (3.5-5.1)
[2020-10-15 06:37] LABS: MAGNESIUM 1.8 mg/dL (1.8-2.4)
--- NOTE | 2020-10-15 06:56 | NUR ---
PAIN CONTROLLED WITH NORCO PO AND MS IVP DURING SHIFT. PT STATES FLANK PAIN IS TOLERABLE NOW. RASH TO BILAT SHOULDERS HAS DISAPPEARED. PT VOIDING LARGE AMOUNTS OF CLEAR YELLOW URINE WITHOUT DYSURIA.
[2020-10-15 08:00] VITALS: BP 114/75
--- NOTE | 2020-10-15 08:07 | NUR ---
PATIENT IS AOX4, RESPIRATIONS EVEN AND UNLABORED ON ROOM AIR, VITAL SIGNS STABLE. DENIES PAIN AT THIS TIME. DENIES DYSURIA. URINE IS CLEAR AND YELLOW, ADEQUATE. IV FLUIDS INFUSING. UPDATED PATIENT ON PLAN OF CARE. WILL CONTINUE TO MONITOR.
[2020-10-15] MEDS ORDERED: LEVO750T51 PO (11:12)
[2020-10-15] MEDS ORDERED: CEPH250C16 PO (11:12)
--- NOTE | 2020-10-15 11:47 | NUR ---
RECEIVED DISCHARGE ORDER. DISCUSSED DISCHARGE INSTRUCTIONS INCLUDING FOLLOW UP, NEW ANTIBIOTICS, AND SIGNS/SYMPTOMS TO REPORT. PATIENT VERBALIZED UNDERSTANDING. IV REMOVED WITH CATHETER TIP INTACT. WILL BE PICKED UP BY FAMILY MEMBER.
--- NOTE | 2020-10-15 12:08 | NUR ---
SOCIAL WORK NOTE: Patient's Orientation Person Situation Place Time Information Provided By PATIENT Comments SW COMPLETED ASSESSMENT WITH PATIENT TELEPHONICALLY. PATIENT STATED THAT SHE NOW LIVES AT [address] [place] [address]. Examiner Of Currency, Realtionship and Phone Number REVA ALBARADO [phone] Healthcare Power of Explosive Ordnance Technician No Does Patient Have a POLST No Identifying Problems No Social Work Triggers Is A Social Work Consult Needed No Mandate Report Filed No Explanation Of Identifying Problems PATIENT IS A 29-YEAR-OLD FEMALE ADMITTED FOR RIGHT PYELO. PATIENT HAS PMHX OF HYPERTENSION AND LUPUS. Admitted From Home Pre-Admission Level Of Functioning Status Independent/Ambulatory Prior Resources/Services Used In Last 12 Months No Prior Resources Used Prior DME No Prior DME Used Dialysis Comments N/A Living Situation Apartment Lives With Family Patient Had Caregiver No Home Support No Caregiver Issues Financial Issues No Known Financial Issue Referral To The Financial Counselor Needed No Factors/Needs No D/C Needs Identified Pt/Rep Participated In Discharge Plan Yes Patient/Family Agress With Discharge Plan Yes Discharge Plan Comments TENTATIVE DISCHARGE PLAN IS FOR PATIENT TO RETURN HOME. DC Plan Status Initiated
--- NOTE | 2020-10-15 12:11 | NUR ---
DISCHARGE PLANNING: THIS IS A 29 Y/O FEMALE PATIENT FROM HOME, WHO CAME IN DUE TO DYSURIA AND RIGHT FLANK PAIN. PAST MEDICAL HISTORY INCLUDE LUPUS, HTN AND UTI. INITIAL DIAGNOSIS OF RIGHT PYELONEPHRITIS. COVID RAPID TEST NEGATIVE. ON ROCEPHIN. FOR DC TODAY.
== END 2020-10-15 12:13 | disposition home or self-care (01) | DRG 463 ==
LOC: MED 19:40 → MMU 23:01
PROVIDERS: ADMIT Hospitalist; ATTEND Hospitalist
DX: N12 Tubulo-interstitial nephritis, not specified as acute or chronic (principal); D69.6 Thrombocytopenia, unspecified; M32.9 Systemic lupus erythematosus, unspecified; E83.42 Hypomagnesemia; R21 Rash and other nonspecific skin eruption; Z20.822 Contact with and (suspected) exposure to COVID-19; Z88.5 Allergy status to narcotic agent; Z88.8 Allergy status to other drugs, medicaments and biological substances; E86.0 Dehydration; D72.819 Decreased white blood cell count, unspecified; I10 Essential (primary) hypertension; Z87.891 Personal history of nicotine dependence
CPT/HCPCS: 36415; 80048; 80053; 81001; 81025; 83605; 83735; 84100; 85025; 87040; 87081; 87086; 96365; 99285; J0696; J2270; J7030; J7060

== ENCOUNTER 2020-10-27 08:19 | Emergency (ER) | payer OTHER, SELFPAY ==
[~2020-10-27] VITALS: Ht 154.9 cm; Wt 68.5 kg
[~2020-10-27 08:19] MED LIST changes: +CEPH250C16 PO; +LEVO750T51 PO; -METO50TA20 PO
[2020-10-27 08:27] VITALS: BP 132/82
[2020-10-27] MEDS ORDERED: MORPHINE SULFATE 4 MG/ML SYR IM ONE (08:50)
[2020-10-27 09:24] LABS: BASOPHILS # (AUTO) 0.1 K/uL (0.00-0.22); BASOPHILS % (AUTO) 2.3 % (0.0-2.0); EOSINOPHILS # (AUTO) 0.1 K/uL (0-0.4); EOSINOPHILS % (AUTO) 2.3 % (0.0-4.0); HEMATOCRIT 41.5 % (36-48); HEMOGLOBIN 14.1 g/dL (12.0-16.0); LYMPHOCYTES # (AUTO) 1.5 K/uL (2.5-16.5); LYMPHOCYTES % (AUTO) 47.8 % (20.5-51.1); MEAN CORPUSCULAR HEMOGLOBIN 32 pg (27-31); MEAN CORPUSCULAR HGB CONC 34 g/dL (33-37); MONOCYTES # (AUTO) 0.2 K/uL (0.8-1.0); MONOCYTES % (AUTO) 7.5 % (1.7-9.3); NEUTROPHILS # (AUTO) 1.2 K/uL (1.8-7.7); NEUTROPHILS % (AUTO) 40.1 % (42.2-75.2); PLATELET COUNT (AUTO) 144 K/uL (140-450); RED BLOOD CELL COUNT(AUTO) 4.37 MIL/uL (4.20-5.40); WHITE BLOOD COUNT (AUTO) 3.1 K/uL (4.8-10.8)
[2020-10-27 09:25] LABS: BILIRUBIN,URINE 1+ (NEGATIVE); BLOOD, URINE NEGATIVE (NEGATIVE); COLOR,URINE ORANGE (YELLOW); NITRITE, URINE NEGATIVE (NEGATIVE); UGLUCOSE NEGATIVE (NEGATIVE)
[2020-10-27 09:28] LABS: ANION GAP 11.3 (8-16); CARBON DIOXIDE 28.7 mmol/L (21-32); CREATININE 0.8 mg/dL (0.6-1.3); TOTAL BILIRUBIN 0.3 mg/dL (0.0-1.0)
[2020-10-27 09:51] LABS: RBC,URINE 0-5 /HPF (0-5)
[2020-10-27 09:52] LABS: APPEARANCE,URINE SLIGHTLY HAZY (CLEAR)
[2020-10-27 09:53] LABS: LEUKOCYTE ESTERASE ,URINE 1+ (NEGATIVE)
[2020-10-27] MEDS ORDERED: FLUC150T PO (10:46)
[2020-10-27] MEDS ORDERED: LEVO750T51 PO (10:47)
[2020-10-27 10:56] VITALS: BP 132/82
== END 2020-10-27 10:55 | disposition home or self-care (01) ==
LOC: MED 08:19
DX: N12 Tubulo-interstitial nephritis, not specified as acute or chronic (principal); I10 Essential (primary) hypertension; Z88.6 Allergy status to analgesic agent; Z88.2 Allergy status to sulfonamides; Z88.8 Allergy status to other drugs, medicaments and biological substances
CPT/HCPCS: 36415; 74150; 80053; 81001; 81025; 85025; 87086; 96372; 99284; J2270

== ENCOUNTER 2020-11-05 10:32 | Emergency (ER) | payer OTHER ==
[~2020-11-05] VITALS: Ht 154.9 cm; Wt 68.5 kg
[~2020-11-05 10:32] MED LIST changes: +FLUC150T PO
[2020-11-05 10:36] VITALS: BP 125/96
--- NOTE | 2020-11-05 11:16 | NUR ---
29 YEAR OLD FEMALE COMPLAINS OF DYSURIA WITH LOWER BACK PAIN X YESTERDAY. PT STATES THAT SHE ALSO SAW SOME BLOOD IN URINE. PT HAD UTI 2 WEEKS PRIOR, BUT SYMPTOMS STARTED YESTERDAY. PT AOX4, BREATHING EVEN AND UNLABORED, SKIN WARM AND DRY. BED IN LOWEST POSITION, LOCKED, BED RAIL UPX1. PMH - SLE ALLERGIES - IBUPROFEN, SULFAS, TRIMETHOPRIM
[2020-11-05] MEDS ORDERED: cephALEXin 500 MG CAP PO ONE (11:25)
[2020-11-05] MEDS ORDERED: levoFLOXacin 500 MG TAB PO ONE (11:25)
[2020-11-05] MEDS ORDERED: CEPH500T PO (11:26)
[2020-11-05] MEDS ORDERED: CIPR500T4 PO (11:26)
[2020-11-05] MEDS ORDERED: PYR100 PO (11:26)
--- NOTE | 2020-11-05 11:37 | NUR ---
PT STATES SHE HAS ALLERGY TO CEPHALEXIN, ERMD MADE AWARE
[2020-11-05 11:55] VITALS: BP 125/96
--- NOTE | 2020-11-05 11:56 | NUR ---
Patient discharged with v/s stable. Written and verbal after care instructions given and explained. Patient alert, oriented and verbalized understanding of instructions. Ambulatory with steady gait. All questions addressed prior to discharge. ID band removed. Patient advised to follow up with PMD. Rx of cephalexin, ciprofloxacin, and pyridium given. Patient educated on indication of medication including possible reaction and side effects. Opportunity to ask questions provided and answered.
== END 2020-11-05 11:56 | disposition home or self-care (01) ==
LOC: MED 10:32
DX: N39.0 Urinary tract infection, site not specified (principal); M54.9 Dorsalgia, unspecified; I10 Essential (primary) hypertension; Z88.1 Allergy status to other antibiotic agents; Z88.2 Allergy status to sulfonamides; Z88.6 Allergy status to analgesic agent; Z79.899 Other long term (current) drug therapy
CPT/HCPCS: 81002; 81025; 99283

== ENCOUNTER 2020-11-24 07:48 | Emergency (ER) | payer OTHER ==
[~2020-11-24] VITALS: Ht 154.9 cm; Wt 68.5 kg
[~2020-11-24 07:48] MED LIST changes: +CEPH500T PO; +CIPR500T4 PO; +PYR100 PO
[2020-11-24 07:55] VITALS: BP 128/86
--- NOTE | 2020-11-24 08:00 | NUR ---
PT AMBULATED TO BED 03.
--- NOTE | 2020-11-24 08:02 | NUR ---
PT AMBULATED TO RESTROOM FOR UA COLLECTION.
--- NOTE | 2020-11-24 08:11 | NUR ---
30 Y/O FEMALE C/O LOWER ABDOMINAL PAIN & URINARY BURNING X YESTERDAY. SEEN HERE SAME S/S 11/17/20. PT STATES DYSURIA 03/02 DESCRIBES BURNING X1 DAY. PMH: LUPUS ALLERGIES: IBUPROFEN, SULFA, TRIMETHOPRIM
--- NOTE | 2020-11-24 08:28 | NUR ---
Dr. Aguilar at pt bedside for further evaluation.
[2020-11-24] MEDS ORDERED: NITR100C7 PO (08:44)
[2020-11-24] MEDS ORDERED: PYR100 PO (08:45)
[2020-11-24 08:54] VITALS: BP 128/86
--- NOTE | 2020-11-24 08:55 | NUR ---
Patient discharged with v/s stable. Written and verbal after care instructions given and explained. Patient alert, oriented and verbalized understanding of instructions. Ambulatory with steady gait. All questions addressed prior to discharge. ID band removed. Patient advised to follow up with PMD. Rx of MACROBID 100MG BID PO X5DAYS, AND PYRIDUIU,100G TID PRN PAIN given. Patient educated on indication of medication including possible reaction and side effects. Opportunity to ask questions provided and answered.
== END 2020-11-24 08:55 | disposition home or self-care (01) ==
LOC: MED 07:48
DX: N30.01 Acute cystitis with hematuria (principal); Z88.6 Allergy status to analgesic agent; Z88.2 Allergy status to sulfonamides; Z88.8 Allergy status to other drugs, medicaments and biological substances; Z20.822 Contact with and (suspected) exposure to COVID-19
CPT/HCPCS: 36415; 81002; 81025; 87086; 87491; 99283; J7030

== ENCOUNTER 2020-11-27 01:29 | Emergency (ER) | payer OTHER ==
[~2020-11-27] VITALS: Ht 154.9 cm; Wt 69.4 kg
[~2020-11-27 01:29] MED LIST changes: +NITR100C7 PO
[2020-11-27 01:32] VITALS: BP 127/90
--- NOTE | 2020-11-27 01:39 | NUR ---
PT AMBULATED TO BED 7
--- NOTE | 2020-11-27 01:40 | NUR ---
PT AMBULATED TO BATHROOM
--- NOTE | 2020-11-27 01:48 | NUR ---
30 Y/O FEMALE PRESENTS TO THE ED WITH C/O VAGINAL BLEEDING. PT STATES, "WHEN I WIPE MYSELF I'M BLEEDING." PT REPORTS THE INCIDENT STARTED 3 DAYS AGO. UPON URINATION, THERE IS BURNING, FREQUENCY, AND LOWER BACK PAIN ACCORDING TO THE PATIENT. LAST MENSTRUAL CYCLE WAS October. DENIES N/V/D; SKIN IS PINK/WARM/DRY; AAOX4 WITH EVEN AND STEADY GAIT;PT DENIES ANY FEVER, CP, SOB, OR COUGH AT THIS TIME; VSS. PMH: UTI, LUPUS ALLERGIES: IBUPROFEN, SULFAMETHOXAZOLE, TRIMETHOPRIM
[2020-11-27] MEDS ORDERED: CIPR500T4 PO (02:26)
[2020-11-27 03:22] VITALS: BP 127/90
== END 2020-11-27 03:22 | disposition home or self-care (01) ==
LOC: MED 01:29
DX: N39.0 Urinary tract infection, site not specified (principal); R31.9 Hematuria, unspecified; F17.200 Nicotine dependence, unspecified, uncomplicated; Z88.1 Allergy status to other antibiotic agents; Z88.2 Allergy status to sulfonamides; Z88.6 Allergy status to analgesic agent; Z79.899 Other long term (current) drug therapy; Z98.890 Other specified postprocedural states
CPT/HCPCS: 81002; 81025; 87086; 99283

== ENCOUNTER 2021-07-07 10:14 | Emergency (ER) | payer OTHER ==
[~2021-07-07] VITALS: Ht 154.9 cm; Wt 72.7 kg
[2021-07-07 10:16] VITALS: BP 119/86
--- NOTE | 2021-07-07 10:20 | NUR ---
PT AMBULATED TO ER BED 12 WITH A STEADY GAIT.
--- NOTE | 2021-07-07 10:20 | NUR ---
30 Y/O FEMALE, C/O PAIN AND BURNING (03/02) W/ URINATION X4 DAYS. PT WAS ADIMITTED IN [facility] FOR SAME, PT STATES DX WA INFECTION. PT CLAIMS THESE SYMPTOMS ARE SIMILAR. -FEVER, - SOB, -CP, -DIZZY, -ACHES, -COUGH, NO VAGINAL D/C.. PT BIB SELF AND AMBULATED TO BED W/O ASSISTANCE. PT SEATED IN BED W/ RAIL UP X1, BED IN LOWEST SETTING. HX: C-SECT, LUPUS, INFECTION ALLERGIES: SEE LIST NOT CURRENTLY TAKING MEDS
[2021-07-07] MEDS ORDERED: ACETAMINOPHEN 325 MG TAB PO ONE (10:40)
[2021-07-07] MEDS ORDERED: ONDANSETRON 4 MG ODT PO ONE (10:40)
--- NOTE | 2021-07-07 10:43 | NUR ---
TROLLEY OPERATOR AT PT BEDSIDE.
--- NOTE | 2021-07-07 10:45 | NUR ---
LABS AT BEDSIDE
--- NOTE | 2021-07-07 10:55 | NUR ---
ultrasound at bedside
[2021-07-07 11:38] LABS: ANION GAP 11.6 (8-16); CARBON DIOXIDE 28.5 mmol/L (21-32); CREATININE 0.8 mg/dL (0.6-1.3); POTASSIUM 4.1 mmol/L (3.5-5.1)
[2021-07-07 11:38] LABS: APPEARANCE,URINE HAZY (CLEAR); BILIRUBIN,URINE NEGATIVE (NEGATIVE); BLOOD, URINE 3+ (NEGATIVE); COLOR,URINE YELLOW (YELLOW); PH,URINE 5.5 (5.0-9.0); UGLUCOSE NEGATIVE (NEGATIVE)
[2021-07-07 11:40] LABS: BASOPHILS % (AUTO) 1.2 % (0.0-2.0); EOSINOPHILS # (AUTO) 0.1 K/uL (0-0.4); EOSINOPHILS % (AUTO) 1.8 % (0.0-4.0); HEMATOCRIT 39.8 % (36-48); HEMOGLOBIN 13.5 g/dL (12.0-16.0); LYMPHOCYTES # (AUTO) 1.3 K/uL (2.5-16.5); LYMPHOCYTES % (AUTO) 45.5 % (20.5-51.1); MEAN CORPUSCULAR HEMOGLOBIN 32 pg (27-31); MEAN CORPUSCULAR HGB CONC 34 g/dL (33-37); MEAN CORPUSCULAR VOLUME 94.4 fL (80-94); MONOCYTES # (AUTO) 0.4 K/uL (0.8-1.0); MONOCYTES % (AUTO) 13.6 % (1.7-9.3); NEUTROPHILS # (AUTO) 1.1 K/uL (1.8-7.7); NEUTROPHILS % (AUTO) 37.9 % (42.2-75.2); PLATELET COUNT (AUTO) 157 K/uL (140-450); RED BLOOD CELL COUNT(AUTO) 4.22 MIL/uL (4.20-5.40); RED CELL DISTRIBUTION WIDTH 14.3 % (11.6-13.7); WHITE BLOOD COUNT (AUTO) 2.9 K/uL (4.8-10.8)
[2021-07-07 11:47] LABS: RBC,URINE 50-80 /HPF (0-5); WBC,URINE 20-60 /HPF (0-5)
[2021-07-07 11:48] LABS: NITRITE, URINE POSITIVE (NEGATIVE)
[2021-07-07 11:49] LABS: LEUKOCYTE ESTERASE ,URINE 2+ (NEGATIVE)
[2021-07-07] MEDS ORDERED: CIPROFLOXACIN 250 MG TAB PO ONE (11:55)
[2021-07-07] MEDS ORDERED: PHEN-1877 PO (12:01)
[2021-07-07] MEDS ORDERED: CIPR500T4 PO (12:01)
[2021-07-07 12:20] VITALS: BP 119/86
--- NOTE | 2021-07-07 12:20 | NUR ---
Patient discharged with v/s stable. Written and verbal after care instructions given and explained. Patient alert, oriented and verbalized understanding of instructions. Ambulatory with steady gait. All questions addressed prior to discharge. ID band removed. Patient advised to follow up with PMD. Rx of Ciprofloxacin and Phenazopyridine given. Patient educated on indication of medication including possible reaction and side effects. Opportunity to ask questions provided and answered.
[2021-07-07] MEDS ORDERED: PRED20TA5 PO (22:54)
[2021-07-07] MEDS ORDERED: CLOT14CR2 TP (22:54)
[2021-07-07] MEDS ORDERED: NITR100C7 PO (22:55)
== END 2021-07-07 12:15 | disposition home or self-care (01) ==
LOC: MED 10:14
DX: N30.91 Cystitis, unspecified with hematuria (principal); N39.0 Urinary tract infection, site not specified; F17.200 Nicotine dependence, unspecified, uncomplicated; Z71.6 Tobacco abuse counseling; Z79.899 Other long term (current) drug therapy; Z88.1 Allergy status to other antibiotic agents; Z88.2 Allergy status to sulfonamides; Z88.6 Allergy status to analgesic agent; Z98.890 Other specified postprocedural states
CPT/HCPCS: 36415; 76830; 80048; 81001; 81025; 85025; 87086; 99284; Q0092; Q0162

== ENCOUNTER 2021-07-07 20:25 | Emergency (ER) | payer OTHER ==
[~2021-07-07] VITALS: Ht 154.9 cm; Wt 73.5 kg
[~2021-07-07 20:25] MED LIST changes: +PHEN-1877 PO
[2021-07-07 20:43] VITALS: BP 139/104
--- NOTE | 2021-07-07 20:51 | NUR ---
PATIENT AMBULATORY TO THE BATHROOM AND SENT TO PAUL
[2021-07-07] MEDS ORDERED: FAMOTIDINE 20 MG TAB PO ONE (22:50)
[2021-07-07] MEDS ORDERED: predniSONE 20 MG TAB PO ONE (22:50)
[2021-07-07] MEDS ORDERED: PRED20TA5 PO (22:54)
[2021-07-07] MEDS ORDERED: CLOT14CR2 TP (22:54)
[2021-07-07] MEDS ORDERED: NITR100C7 PO (22:55)
--- NOTE | 2021-07-07 23:13 | NUR ---
WENT TO D/C PT IN LOBBY. SHE ADVISED ME THAT SHE HAD MEDICATIONS THAT THE DR ORDERED. I STARTED TO APOLIGIZE BUT PT STATED " I DONT KNOW WHAT THE FUCK YOU GUYS ARE DOING BACK THERE BUT YOU ARE USELESS." ADVISED PT THAT WE ARE VERY BUSY AND ALL BEDS ARE FULL. I STATED THAT I WOULD GET THE MEDS. I WAS WALKING AWAY, SHE YELLED AT ME WITH A FULL LOBBY, STATING "THATS RIGHT YOU LITTLE BITCH, GET YOUR SHIT TOGETHER". PT ADV ADMITTING THAT SHE WANTED A DIFFERENT NURSE. I ADVISED THAT SHE MAY HAVE TO WAIT LONGER TO BE DISCHARGED SINCE ALL MY NURSES ARE VERY BUSY. PT STARTED TO CUSS AT ME AGAIN, BUT I JUST WALKED AWAY.
[2021-07-07] MEDS ORDERED: predniSONE 20 MG TAB ONE (23:59)
[2021-07-07] MEDS ORDERED: FAMOTIDINE 20 MG TAB ONE (23:59)
--- NOTE | 2021-07-08 00:18 | NUR ---
PATIENT ELOPED FROM FACILITY. DISCHARGE INSTRUCTIONS NOT GIVEN TO PATIENT. DR. MOLINA NOTIFIED. NO MEDS GIVEN
== END 2021-07-08 00:18 | disposition left against medical advice (07) ==
LOC: MED 20:25
DX: R21 Rash and other nonspecific skin eruption (principal); N39.0 Urinary tract infection, site not specified; Z79.899 Other long term (current) drug therapy; Z88.6 Allergy status to analgesic agent; Z88.2 Allergy status to sulfonamides; Z88.1 Allergy status to other antibiotic agents
CPT/HCPCS: 81002; 81025; 99282; J7512; Q0163

== ENCOUNTER 2021-07-19 10:28 | Emergency (ER) | payer OTHER ==
[~2021-07-19] VITALS: Ht 154.9 cm; Wt 73.5 kg
[~2021-07-19 10:28] MED LIST changes: -CEPH250C16 PO; -CEPH500T PO; +CLOT14CR2 TP; -FLUC150T PO; -LEVO750T51 PO; +PRED20TA5 PO; -PYR100 PO
[2021-07-19 10:37] VITALS: BP 123/76
--- NOTE | 2021-07-19 10:40 | NUR ---
PT AMBULATED TO BED
--- NOTE | 2021-07-19 10:54 | NUR ---
30 Y/O FEMALE C/O URINARY FREQUENCY FOR 3 DAYS. STATES PYRIDIUM, MEDICATION GIVEN TO HER FOR UTI CAUSED DARK BLOTHCES ON HER SKIN. PT DENIES ANY PAIN OR BURNING UPON URINATION. PT STATED SHE HAS BEEN DRINKING WATER MORE FREQUENTLY WELL AND STATED "HER MOUTH IS ALWAYS DRY." MINOR DISCOMFORT FELT ON CVA UPON ASSESSMENT. PT DENIES ANY CHEST PAIN, SOB, N/V, FEVER/CHILLS AT THIS TIME. MEDHX: GESTATIONAL DIABETES ALLERGIES: IBUPROFEN, SULFAMETHOXAZOLE, TRIMETHOPRIM
--- NOTE | 2021-07-19 11:37 | NUR ---
DR. TERRELL BEDSIDE EVALUATING PT
[2021-07-19] MEDS ORDERED: NACL 0.9% 2,000 ML IV SCH (11:45)
--- NOTE | 2021-07-19 11:54 | NUR ---
20 IV ESTABLISHED IN R HAND. BLOOD WORK COLLECTED FROM IV AND HANDED TO STOCK REPLENISHER
--- NOTE | 2021-07-19 12:00 | NUR ---
RT BEDSIDE COLLECTING ABG BLOOD WORK
--- NOTE | 2021-07-19 12:03 | NUR ---
MED REC COMPLETED FOR PATIENT
--- NOTE | 2021-07-19 12:07 | NUR ---
ADVANCED QUALITY ENGINEER BEDSIDE COLLECTING BLOOD CULTURES
--- NOTE | 2021-07-19 12:09 | NUR ---
XRAY BEDSIDE WITH PATIENT
[2021-07-19 12:11] LABS: BASOPHILS % (AUTO) 1.2 % (0.0-2.0); EOSINOPHILS % (AUTO) 1.1 % (0.0-4.0); HEMATOCRIT 43.1 % (36-48); LYMPHOCYTES # (AUTO) 1.3 K/uL (2.5-16.5); LYMPHOCYTES % (AUTO) 30.1 % (20.5-51.1); MEAN CORPUSCULAR HEMOGLOBIN 33 pg (27-31); MEAN CORPUSCULAR HGB CONC 35 g/dL (33-37); MEAN CORPUSCULAR VOLUME 93.4 fL (80-94); MONOCYTES # (AUTO) 0.3 K/uL (0.8-1.0); MONOCYTES % (AUTO) 8.1 % (1.7-9.3); NEUTROPHILS # (AUTO) 2.5 K/uL (1.8-7.7); NEUTROPHILS % (AUTO) 59.5 % (42.2-75.2); PLATELET COUNT (AUTO) 159 K/uL (140-450); RED BLOOD CELL COUNT(AUTO) 4.61 MIL/uL (4.20-5.40); RED CELL DISTRIBUTION WIDTH 13.4 % (11.6-13.7); WHITE BLOOD COUNT (AUTO) 4.2 K/uL (4.8-10.8)
[2021-07-19] MEDS ORDERED: INSULIN REGULAR, HUMAN 100 UNIT/ML VIAL IVP ONE (12:45)
--- NOTE | 2021-07-19 12:48 | NUR ---
Patient appears to be resting comfortably in bed CURRENTLY TALKING ON PHONE. Vital Signs within normal limits. Respirations even and unlabored.
[2021-07-19 13:03] LABS: ALBUMIN 3.7 g/dL (3.4-5.0); ANION GAP 10.4 (8-16); CARBON DIOXIDE 25.1 mmol/L (21-32); POTASSIUM 4.5 mmol/L (3.5-5.1); TOTAL BILIRUBIN 0.6 mg/dL (0.0-1.0)
[2021-07-19] MEDS ORDERED: NOVR SUBQ (14:30)
[2021-07-19 14:40] VITALS: BP 132/90
--- NOTE | 2021-07-19 14:45 | NUR ---
Patient discharged with v/s stable. Written and verbal after care instructions given and explained. Patient alert, oriented and verbalized understanding of instructions. Ambulatory with steady gait. All questions addressed prior to discharge. ID band removed. Patient advised to follow up with PMD. Rx of INSULIN SLIDING SCALE given. Patient educated on indication of medication including possible reaction and side effects. Opportunity to ask questions provided and answered.
[2021-07-19 22:05] LABS: APPEARANCE,URINE CLEAR (CLEAR); BILIRUBIN,URINE NEGATIVE (NEGATIVE); BLOOD, URINE NEGATIVE (NEGATIVE); LEUKOCYTE ESTERASE ,URINE NEGATIVE (NEGATIVE); NITRITE, URINE NEGATIVE (NEGATIVE); UGLUCOSE 3+ (NEGATIVE)
[2021-07-19 22:08] LABS: COLOR,URINE STRAW (YELLOW)
== END 2021-07-19 14:45 | disposition home or self-care (01) ==
LOC: MED 10:28
DX: R35.0 Frequency of micturition (principal); E11.65 Type 2 diabetes mellitus with hyperglycemia; Z88.6 Allergy status to analgesic agent; Z88.2 Allergy status to sulfonamides; Z88.1 Allergy status to other antibiotic agents; Z98.890 Other specified postprocedural states
CPT/HCPCS: 36415; 36600; 71045; 80053; 81003; 81025; 82803; 85025; 87040; 87086; 96361; 96374; 99284; J1815; Q0092

== ENCOUNTER 2021-07-21 15:12 | Observation (INO) | payer OTHER, SELFPAY ==
[~2021-07-21] VITALS: Ht 154.9 cm; Wt 73.5 kg
[~2021-07-21 15:12] MED LIST changes: -CIPR500T4 PO; -CLOT14CR2 TP; -NITR100C7 PO; +NOVR SUBQ; -PHEN-1877 PO; -PRED20TA5 PO
[2021-07-21 15:19] VITALS: BP 118/80
--- NOTE | 2021-07-21 15:29 | NUR ---
[facility]: RIGHT 20/100, LEFT 20/50, BOTH EYES 20/50
--- NOTE | 2021-07-21 15:39 | NUR ---
med rec completed for patient
[2021-07-21] MEDS ORDERED: NACL 0.9% 1,000 ML IV ONE (15:40)
--- NOTE | 2021-07-21 15:42 | NUR ---
XRAY BEDSIDE WITH PATIENT
--- NOTE | 2021-07-21 15:55 | NUR ---
30 Y/O FEMALE PATIENT PRESENTS TO ED WITH HYPERGLYCEMIA WITH BLURRRED VISION AND STOMACH DISCOMFORT. PT STATES THAT SHE TAKES HER PRESCRIBED INSULIN PRESCRIBED BUT DOES NOT HAVE A GLUCOMETER TO ASSESSHER BLOOD SUGAR LEVELS. DENIES N/V/D; SKIN IS PINK/WARM/DRY; AAOX4 WITH EVEN AND STEADY GAIT; LUNGS CLEAR BL; PT DENIES ANY FEVER, CP, SOB, OR COUGH AT THIS TIME; PATIENT STATES PAIN OF 0/10 AT THIS TIME; VSS; PATIENT POSITIONED FOR COMFORT; HOB ELEVATED; BEDRAILS UP X1; BED DOWN. ER MD MADE AWARE OF PT STATUS. PT HAS CALM DEMEANOR, UNLABORED BREATHING WITH BILATERAL CHEST RISE/FALL, STEADY GAIT W/O ASSISTANCE. Addendum: 07/21/21 at 1647 by [email or web address] HX: GESTATIONAL DIABETES ALLERGIES: IBUPROFEN, SULFAMETHOXAZOLE, TRIMETHOPRIM
[2021-07-21 16:27] LABS: BASOPHILS # (AUTO) 0.1 K/uL (0.00-0.22); BASOPHILS % (AUTO) 2.2 % (0.0-2.0); EOSINOPHILS # (AUTO) 0.1 K/uL (0-0.4); EOSINOPHILS % (AUTO) 1.6 % (0.0-4.0); HEMOGLOBIN 13.4 g/dL (12.0-16.0); LYMPHOCYTES # (AUTO) 1.3 K/uL (2.5-16.5); LYMPHOCYTES % (AUTO) 34.2 % (20.5-51.1); MEAN CORPUSCULAR HEMOGLOBIN 32 pg (27-31); MEAN CORPUSCULAR HGB CONC 34 g/dL (33-37); MEAN CORPUSCULAR VOLUME 93.1 fL (80-94); MONOCYTES # (AUTO) 0.2 K/uL (0.8-1.0); MONOCYTES % (AUTO) 6.1 % (1.7-9.3); NEUTROPHILS # (AUTO) 2.1 K/uL (1.8-7.7); NEUTROPHILS % (AUTO) 55.9 % (42.2-75.2); PLATELET COUNT (AUTO) 132 K/uL (140-450); RED BLOOD CELL COUNT(AUTO) 4.19 MIL/uL (4.20-5.40); RED CELL DISTRIBUTION WIDTH 13.4 % (11.6-13.7); WHITE BLOOD COUNT (AUTO) 3.7 K/uL (4.8-10.8)
[2021-07-21 16:37] LABS: ALBUMIN 3.5 g/dL (3.4-5.0); ANION GAP 10.4 (8-16); CARBON DIOXIDE 27.7 mmol/L (21-32); POTASSIUM 4.1 mmol/L (3.5-5.1); TOTAL BILIRUBIN 0.4 mg/dL (0.0-1.0)
--- NOTE | 2021-07-21 16:55 | NUR ---
ER AT BEDSIDE
--- NOTE | 2021-07-21 17:01 | NUR ---
KAHLIL LONG TEST WALKED TO LAB
--- NOTE | 2021-07-21 17:48 | NUR ---
SPOKE WITH [employer] PERTAINING TO PT'S ADMISSION Addendum: 07/21/21 at 8268 by PRABHA spoke with Saul
--- NOTE | 2021-07-21 17:56 | NUR ---
Patient will be admitted to care of DR DALAL. Admited to Med/Surg Observation. Will go to room 105A. Belongings list completed. Report to Neli OLIVER.
--- NOTE | 2021-07-21 18:10 | NUR ---
RECEIVED PATIENT FROM ER VIA WHEELCHAIR. PATIENT IS BEING ADMITTED FOR DIABETES. PATIENT IS A&O X4. RESPIRATIONS EVEN AND UNLABORED ON ROOM AIR. IV SITE IS A 20G ON THE RIGHT WRIST; DRY, PATENT, INTACT. NO COMPLAINTS OF PAIN. NO S/S OF DISTRESS. ALL SAFETY PRECAUTIONS IN PLACE.
[2021-07-21] MEDS: metFORMIN 500 MG TAB PO SCH (18:55)
--- NOTE | 2021-07-21 19:46 | NUR ---
ENDORSED PATIENT TO QUARTER BACKER RN FOR CONTINUITY OF CARE. PATIENT IS STABLE.
[2021-07-21 20:00] VITALS: BP 110/51
--- NOTE | 2021-07-21 20:00 | NUR ---
patient was received alert and coherent, able to speak her needs, denies pain, no signs of distress. Admission process started.
--- NOTE | 2021-07-21 20:00 | NUR ---
PATIENT WAS RECEIVED ALERT ORIENTED X 4, ABLE TO SPEAK HER NEEDS, NO S/S OF DISTRESS.
--- NOTE | 2021-07-21 22:00 | NUR ---
PATIENT ADMISSION WAS IN PROGRESS. PATIENT WAS STILL AWAKE, EATING THE FOOD HER FAMILY BROUGHT HER IN FROM HOME.
--- NOTE | 2021-07-21 23:00 | NUR ---
PATIENT WAS NON COMPLIANT WITH HER DIET, SHE WAS EATING THE FOOD THE WAS BROUGHT IN BY THE FAMILY.
--- NOTE | 2021-07-22 | NUR ---
PATIENT WAS CALMLY ASLEEP. NO SIGNS OF DISTRESS AT THIS TIME, WITH REGULAR, EQUAL RISE AND FALL OF CHEST, NORMAL BREATHING PATTERN. AT 16 BREATHS/MINUTE.
--- NOTE | 2021-07-22 02:00 | NUR ---
PATIENT WAS CALMLY ASLEEP. NO SIGNS OF DISTRESS AT THIS TIME, WITH REGULAR, EQUAL RISE AND FALL OF CHEST, NORMAL BREATHING PATTERN. AT 16 BREATHS/MINUTE.
[2021-07-22 04:00] VITALS: BP 121/57
[2021-07-22 08:00] VITALS: BP 109/75
--- NOTE | 2021-07-22 08:01 | NUR ---
ALL REPORTS WERE GIVEN, TRANSFER OF CARE ENDORSED.
--- NOTE | 2021-07-22 08:02 | NUR ---
RECEIVED REPORT FROM SENIOR GAME ADVISOR NURSE FOR CONTINUITY OF CARE. PATIENT IS IN BED SLEEPING AT THIS TIME. RESPIRATIONS ARE EVEN AND UNLABORED. NO SIGNS OF DISTRESS NOTED. PATIENT IS ALERT AND ORIENTED X4. PATIENT IS ABLE TO VERBALIZE NEEDS TO STAFF. PATIENT IS ON ROOM AIR, WITH 02 SAT AT 99%. PATIENT WAS ADMITTED FOR OBSERVATION, DIAGNOSIS DM. PATIENT IS ON CCHO DIET. ABD IS SOFT, NON-TENDER, AND NON-DISTENDED WITH BOWEL SOUNDS PRESENT. AT TIME OF REPORT, NOTED PATIENT HAD FAST FOOD IN BAG AT BEDSIDE. EDUCATED PATIENT ON HER CCHO DIET, AND ON BENEFITS OF COMPLYING WITH DIET, WELL RISK OF NON-COMPLIANCE OF DIET. PATIENT NODDED. PATIENT SKIN IS WARM, DRY, AND INTACT. PATIENT HAS IV TO R WRIST, 20G. IV IS SALINE LOCKED. CALL LIGHT WITHIN REACH. ALL SAFETY MEASURES IN PLACE. WILL CONTINUE TO MONITOR.
--- NOTE | 2021-07-22 08:40 | NUR ---
PATIENT REFUSED BREAKFAST TRAY. STATED SHE DID NOT LIKE WHAT WAS ON THE TRAY. STAFF LATER NOTED THAT PATIENT HAD BROUGHT HER OWN FOOD FROM HOME, FAST FOOD. EDUCATED PATIENT ON IMPORTANCE OF DIETARY COMPLIANCE. PATIENT STATED "OK". AND CONTINUED TO EAT HER FAST FOOD.
[2021-07-22] MEDS ORDERED: DOCUSATE SODIUM 100 MG GELCAP PO PRN (08:45)
[2021-07-22] MEDS ORDERED: ACETAMINOPHEN 325 MG TAB PO PRN (08:45)
[2021-07-22] MEDS ORDERED: ZOLPIDEM 5 MG TAB PO PRN (08:45)
[2021-07-22] MEDS ORDERED: ONDANSETRON 4 MG/2 ML VIAL IM/IVP PRN (08:45)
[2021-07-22] MEDS ORDERED: LORazepam 2 MG/ML VIAL IM/IVP PRN (08:45)
[2021-07-22] MEDS ORDERED: HYDROcodone/APAP 5/325 MG 1 TAB TAB PO PRN (08:45)
[2021-07-22] MEDS ORDERED: MAG SULF 2000 MG/WATER PREMIX 50 ML IV PRN (08:45)
[2021-07-22] MEDS ORDERED: POTASSIUM CHLORIDE 10 MEQ TABER PO PRN (08:45)
[2021-07-22] MEDS ORDERED: DEXTROSE 50% 50 ML SYR IVP PRN (08:50)
[2021-07-22] MEDS: metFORMIN 500 MG TAB PO SCH ×2 (08:59→17:30)
[2021-07-22] MEDS ORDERED: LOVENOX 1MG/KG Q12H SUBQ SCH (09:00)
[2021-07-22] MEDS: NACL 0.9% 1,000 ML IV SCH (09:31)
[2021-07-22 09:50] LABS: BASOPHILS % (AUTO) 1.2 % (0.0-2.0); EOSINOPHILS # (AUTO) 0.1 K/uL (0-0.4); EOSINOPHILS % (AUTO) 1.5 % (0.0-4.0); HEMATOCRIT 37.6 % (36-48); HEMOGLOBIN 12.9 g/dL (12.0-16.0); LYMPHOCYTES # (AUTO) 1.1 K/uL (2.5-16.5); LYMPHOCYTES % (AUTO) 30.2 % (20.5-51.1); MEAN CORPUSCULAR HEMOGLOBIN 32 pg (27-31); MEAN CORPUSCULAR HGB CONC 34 g/dL (33-37); MEAN CORPUSCULAR VOLUME 93.7 fL (80-94); MONOCYTES # (AUTO) 0.3 K/uL (0.8-1.0); MONOCYTES % (AUTO) 7.3 % (1.7-9.3); NEUTROPHILS # (AUTO) 2.2 K/uL (1.8-7.7); NEUTROPHILS % (AUTO) 59.8 % (42.2-75.2); PLATELET COUNT (AUTO) 122 K/uL (140-450); RED BLOOD CELL COUNT(AUTO) 4.01 MIL/uL (4.20-5.40); RED CELL DISTRIBUTION WIDTH 13.5 % (11.6-13.7); WHITE BLOOD COUNT (AUTO) 3.6 K/uL (4.8-10.8)
[2021-07-22 10:04] LABS: ANION GAP 11.4 (8-16); CARBON DIOXIDE 26.8 mmol/L (21-32); CREATININE 0.8 mg/dL (0.6-1.3); POTASSIUM 4.2 mmol/L (3.5-5.1); PROTHROMBIN TIME 9.3 secs (10.8-13.4)
--- NOTE | 2021-07-22 10:05 | NUR ---
LAB CALLED TO REPORT CRITICAL VALUE OF BLOOD GLUCOSE AT 428. DR DALAL MADE AWARE. NEW ORDERS RECEIVED AND CARRIED OUT. WILL CONTINUE TO MONITOR.
--- NOTE | 2021-07-22 10:05 | NUR ---
PATIENT HAS BEEN SCREENED AND CATEGORIZED HIGH NUTRITION RISK. PATIENT WILL BE SEEN WITHIN 1-2 DAYS OF ADMISSION. 07/22/21-07/23/21 REVIEWED BY CARO ROBLES RD
[2021-07-22 10:15] LABS: MAGNESIUM 1.4 mg/dL (1.8-2.4); PHOSPHORUS 3.2 mg/dL (2.5-4.9); THYROID STIMULATING HORMONE 2.46 uIU/mL (0.34-3.74)
[2021-07-22] MEDS: INSULIN LANTUS 100 UNITS/ML 10 ML VIAL SUBQ SCH (10:29)
--- NOTE | 2021-07-22 11:32 | NUR ---
DC PLANN[age] YRS OLD FEMALE PATIENT WAS ADMITTED FROM HOME WITH A DX OF DIABETES. PATIENT HAS A HX OF DM. BLOOD GLUCOSE ON ADMISSION [phone]. CXR SHOWED NO RADIOGRAPHIC EVIDENCE OF ACUTE CARDIOPULMONARY DISEASE. RAPID COVID TEST NEGATIVE. ADMINISTERED IVF, REG INSULIN AND CONTINUED HOME MEDS. DC PLAN TO GO HOME WHEN STABLE CM TO FOLLOW. Addendum: 07/22/21 at 1410 by Milla Weldon RN DC PLANNING: CALLED [facility] [phone] OPT 2 OPT 3 SPOKE WITH THE COVERING CM FOR ALTHEA STATED THEY GOT INFORMED FOR THE ADMISSION TRACKING #[id number] AND [facility] ARE NOT RESPONSIBLE AND RECOMMEND TO CONTACT [facility] , FAXED ALL CLINICALS TO [facility].
[2021-07-22] MEDS: BLOOD GLUCOSE MONITORING 1 DEV DEV FS SCH ×3 (11:42→21:37)
--- NOTE | 2021-07-22 11:42 | NUR ---
BLOOD GLUCOSE WAS 327. COVERED WITH 8 UNITS INSULIN PER SLIDING SCALE. WILL CONTINUE TO MONITOR.
[2021-07-22] MEDS: INSULIN LISPRO SLIDING SCALE 100 UNITS/ML VIAL SUBQ PRN (11:47)
--- NOTE | 2021-07-22 12:14 | NUR ---
PATIENT'S MAGNESIUM IS 1.4. INFORMED DR DALAL. PER DR, ADMINISTER MAG RIDER 2GM.
--- NOTE | 2021-07-22 12:32 | NUR ---
PATIENT REFUSED LUNCH TRAY. STATED "MY SISTER BROUGHT ME FOOD". PATIENT CONTINUES TO BE NON-COMPLIANT WITH DIET. EDUCATED PATIENT ON IMPORTANCE OF DIETARY COMPLIANCE, WELL RISK OF NON COMPLIANCE. WILL CONTINUE TO MONITOR.
--- NOTE | 2021-07-22 15:22 | NUR ---
DID ROUNDS ON PATIENT. PATIENT IN BED SLEEPING AT THIS TIME. RESPIRATIONS ARE EVEN AND UNLABORED. NO SIGNS OF DISTRESS NOTED. WILL CONTINUE TO MONITOR.
--- NOTE | 2021-07-22 17:18 | NUR ---
PATIENT BLOOD GLUCOSE WAS 150. NO INSULIN COVERAGE NEEDED PER MD ORDER. WILL CONTINUE TO MONITOR.
--- NOTE | 2021-07-22 19:10 | NUR ---
ENDORSED PATIENT TO FARMWORKER BULBS NURSE FOR CONTINUITY OF CARE. PATIENT IS STABLE.
[2021-07-22 20:00] VITALS: BP 115/79
--- NOTE | 2021-07-23 03:46 | NUR ---
the patent vitals are stable . no complain of pain . Her bs on at 2100 113. she is not compliant with her diet. she requested food delivery from outside.the patent walks frequently breathing is even and unlabored. comfort and safety measures were provided. bed is low position . education was provided as one on one discussion . the patient showed understanding
[2021-07-23 04:00] VITALS: BP 120/69
[2021-07-23] MEDS: NACL 0.9% 1,000 ML IV SCH (04:00)
[2021-07-23 06:11] LABS: BASOPHILS # (AUTO) 0.1 K/uL (0.00-0.22); BASOPHILS % (AUTO) 1.3 % (0.0-2.0); EOSINOPHILS # (AUTO) 0.1 K/uL (0-0.4); EOSINOPHILS % (AUTO) 2.2 % (0.0-4.0); HEMATOCRIT 37.3 % (36-48); HEMOGLOBIN 12.7 g/dL (12.0-16.0); LYMPHOCYTES # (AUTO) 1.5 K/uL (2.5-16.5); LYMPHOCYTES % (AUTO) 34.9 % (20.5-51.1); MEAN CORPUSCULAR HEMOGLOBIN 32 pg (27-31); MEAN CORPUSCULAR HGB CONC 34 g/dL (33-37); MEAN CORPUSCULAR VOLUME 93.5 fL (80-94); MONOCYTES # (AUTO) 0.4 K/uL (0.8-1.0); MONOCYTES % (AUTO) 9.3 % (1.7-9.3); NEUTROPHILS # (AUTO) 2.2 K/uL (1.8-7.7); NEUTROPHILS % (AUTO) 52.3 % (42.2-75.2); PLATELET COUNT (AUTO) 130 K/uL (140-450); RED BLOOD CELL COUNT(AUTO) 3.98 MIL/uL (4.20-5.40); RED CELL DISTRIBUTION WIDTH 13.4 % (11.6-13.7); WHITE BLOOD COUNT (AUTO) 4.2 K/uL (4.8-10.8)
[2021-07-23] MEDS: BLOOD GLUCOSE MONITORING 1 DEV DEV FS SCH (06:32)
[2021-07-23] MEDS: INSULIN LISPRO SLIDING SCALE 100 UNITS/ML VIAL SUBQ PRN (06:41)
[2021-07-23 06:45] LABS: ANION GAP 13.7 (8-16); CARBON DIOXIDE 25.4 mmol/L (21-32); CREATININE 0.7 mg/dL (0.6-1.3); POTASSIUM 4.1 mmol/L (3.5-5.1)
[2021-07-23 06:51] LABS: CHOL/HDL RATIO 6.5 (1-4.5); MAGNESIUM 1.5 mg/dL (1.8-2.4); PHOSPHORUS 3.4 mg/dL (2.5-4.9)
--- NOTE | 2021-07-23 07:05 | NUR ---
RECEIVED REPORT FROM MANAGER VISUAL NURSE FOR CONTINUITY OF CARE. PATIENT IS IN BED RESTING AT THIS TIME. RESPIRATIONS ARE EVEN AND UNLABORED. NO SIGNS OF DISTRESS NOTED. WILL CONTINUE TO MONITOR.
[2021-07-23] MEDS: metFORMIN 500 MG TAB PO SCH (08:40)
[2021-07-23] MEDS: INSULIN LANTUS 100 UNITS/ML 10 ML VIAL SUBQ SCH (08:48)
[2021-07-23] MEDS ORDERED: METF-1022 PO (08:54)
[2021-07-23] MEDS ORDERED: INSU100S22 SUBQ (08:54)
[2021-07-23] MEDS ORDERED: ATORVASTATIN 20 MG TAB PO SCH (09:00)
[2021-07-23] MEDS ORDERED: lisinopriL 5 MG TAB PO SCH (09:00)
[2021-07-23 09:05] VITALS: BP 116/81
--- NOTE | 2021-07-23 09:20 | NUR ---
PT. ALERT AND ORIENTED ABLE TO VERBALIZED NEEDS. PT. DISCHARGE WITH A PACKET AND VERBALIZED UNDERSTANDING. REMOVED IV AND WRIST BAND. IV CATHETER INTACT. ALL BELONGING GIVEN. AMBULATE TO LOBBY ACCOMPANIED BY RN TO THEIR PRIVATE CAR.
== END 2021-07-23 09:20 | disposition home or self-care (01) ==
LOC: MED 15:12 → INTOOBSV 17:44 → MTU 17:44
DX: E11.9 Type 2 diabetes mellitus without complications (principal); Z20.822 Contact with and (suspected) exposure to COVID-19; E87.1 Hypo-osmolality and hyponatremia; E83.42 Hypomagnesemia; R74.01 Elevation of levels of liver transaminase levels; M32.9 Systemic lupus erythematosus, unspecified; E66.9 Obesity, unspecified; Z79.899 Other long term (current) drug therapy; Z79.4 Long term (current) use of insulin
CPT/HCPCS: 36415; 71045; 80048; 80053; 80061; 82150; 82948; 83036; 83690; 83735; 83880; 84100; 84134; 84443; 85025; 85610; 85730; 87426; 93005; 96361; 96365; 96366; 96372; 99285; G0378; J1815; J3475; Q0092

== ENCOUNTER 2022-03-09 19:51 | Emergency (ER) | payer SELFPAY ==
[~2022-03-09] VITALS: Ht 154.9 cm; Wt 71.2 kg
[~2022-03-09 19:51] MED LIST changes: +INSU100S22 SUBQ; +METF-1253 PO; -NOVR SUBQ
[2022-03-09 19:56] VITALS: BP 121/91
--- NOTE | 2022-03-09 19:59 | NUR ---
TO LOBBY A/W BED AMBULATORY
[2022-03-09] MEDS ORDERED: LIDOCAINE 5% 1 EA PATCH TP ONE (21:25)
--- NOTE | 2022-03-09 21:59 | NUR ---
Patient discharged with v/s stable. Written and verbal after care instructions given and explained about contusion and knee effusion. Patient verbalized understanding. Ambulatory with steady gait. All questions addressed prior to discharge. Advised to follow up with PMD.
== END 2022-03-09 21:59 | disposition home or self-care (01) ==
LOC: MED 19:51
DX: S80.02XA Contusion of left knee, initial encounter (principal); S80.01XA Contusion of right knee, initial encounter; E11.9 Type 2 diabetes mellitus without complications; Z79.4 Long term (current) use of insulin; Z79.899 Other long term (current) drug therapy; Z88.6 Allergy status to analgesic agent; Z88.2 Allergy status to sulfonamides; Z88.1 Allergy status to other antibiotic agents; W18.30XA Fall on same level, unspecified, initial encounter; Y93.89 Activity, other specified; Y92.89 Other specified places as the place of occurrence of the external cause; Y99.8 Other external cause status
CPT/HCPCS: 73562; 99283

== ENCOUNTER 2022-10-10 21:44 | Emergency (ER) | payer MEDICAID ==
[~2022-10-10] VITALS: Ht 154.9 cm; Wt 71.7 kg
--- NOTE | 2022-10-10 22:05 | NUR ---
CALLED TO TRIAGE, NO ANSWER
[2022-10-10 22:44] VITALS: BP 115/76
--- NOTE | 2022-10-10 22:49 | NUR ---
TO LOBBY FOLLOWING TRIAGE AFTER OBTAINING UA
[2022-10-11 01:11] LABS: BILIRUBIN,URINE NEGATIVE (NEGATIVE); BLOOD, URINE 2+ (NEGATIVE); COLOR,URINE YELLOW (YELLOW); LEUKOCYTE ESTERASE ,URINE TRACE (NEGATIVE); NITRITE, URINE NEGATIVE (NEGATIVE); UGLUCOSE NEGATIVE (NEGATIVE)
[2022-10-11 01:12] LABS: ANION GAP 12.2 (8-16); CARBON DIOXIDE 27.4 mmol/L (21-32); CREATININE 0.9 mg/dL (0.6-1.3); POTASSIUM 3.6 mmol/L (3.5-5.1); TOTAL BILIRUBIN 0.6 mg/dL (0.0-1.0)
[2022-10-11 01:14] LABS: BASOPHILS % (AUTO) 0.9 % (0.0-2.0); EOSINOPHILS % (AUTO) 0.4 % (0.0-4.0); HEMATOCRIT 42.7 % (36-48); HEMOGLOBIN 14.5 g/dL (12.0-16.0); LYMPHOCYTES # (AUTO) 1.2 K/uL (2.5-16.5); LYMPHOCYTES % (AUTO) 39.5 % (20.5-51.1); MEAN CORPUSCULAR HEMOGLOBIN 32 pg (27-31); MEAN CORPUSCULAR HGB CONC 34 g/dL (33-37); MONOCYTES # (AUTO) 0.2 K/uL (0.8-1.0); MONOCYTES % (AUTO) 6.9 % (1.7-9.3); NEUTROPHILS # (AUTO) 1.6 K/uL (1.8-7.7); NEUTROPHILS % (AUTO) 52.3 % (42.2-75.2); PLATELET COUNT (AUTO) 151 K/uL (140-450); RED BLOOD CELL COUNT(AUTO) 4.59 MIL/uL (4.20-5.40); RED CELL DISTRIBUTION WIDTH 13.8 % (11.6-13.7); WHITE BLOOD COUNT (AUTO) 3.1 K/uL (4.8-10.8)
[2022-10-11 01:20] LABS: APPEARANCE,URINE SLIGHTLY HAZY (CLEAR)
[2022-10-11 01:21] LABS: RBC,URINE 0-5 /HPF (0-5); WBC,URINE 60-80 /HPF (0-5)
[2022-10-11] MEDS ORDERED: cefTRIAXone 1,000 MG in LIDOCAINE MPF 1% 2.1 ML IM ONE (01:50)
--- NOTE | 2022-10-11 01:57 | NUR ---
PT TAKEN TO BED 9
[2022-10-11] MEDS ORDERED: LIDOCAINE MPF 1% 5 ML ONE (02:20)
[2022-10-11] MEDS ORDERED: cefTRIAXone 1,000 MG VIAL ONE (02:20)
[2022-10-11] MEDS ORDERED: CIPR500T4 PO (02:54)
[2022-10-11 03:00] VITALS: BP 121/78
--- NOTE | 2022-10-11 03:00 | NUR ---
Patient discharged with v/s stable. Written and verbal after care instructions given and explained. Patient alert, oriented and verbalized understanding of instructions. Ambulatory with steady gait. All questions addressed prior to discharge. ID band removed. Patient advised to follow up with PMD. Rx of CIPROFLOXACIN given. Patient educated on indication of medication including possible reaction and side effects. Opportunity to ask questions provided and answered.
== END 2022-10-11 03:00 | disposition home or self-care (01) ==
LOC: MED 21:44
DX: N39.0 Urinary tract infection, site not specified (principal); Z88.2 Allergy status to sulfonamides; Z88.5 Allergy status to narcotic agent; Z88.8 Allergy status to other drugs, medicaments and biological substances; Z79.899 Other long term (current) drug therapy; Z98.890 Other specified postprocedural states
CPT/HCPCS: 36415; 74176; 80053; 81001; 83605; 85025; 87040; 87086; 96372; 99285; J0696; J2001

== ENCOUNTER 2024-01-20 18:31 | Emergency (ER) | payer MEDICAID, OTHER ==
[~2024-01-20] VITALS: Ht 162.6 cm; Wt 75.3 kg
[~2024-01-20 18:31] MED LIST changes: +CEPH-588 PO; +CIPR500T4 PO; +METR-435 PO; +MICO15CR VG
[2024-01-20 18:36] VITALS: BP 138/91; PULSE 88; RESP 18; TEMP 98.5; O2SAT 96
[2024-01-20 19:33] LABS: BASOPHILS % (AUTO) 0.9 % (0.0-2.0); EOSINOPHILS % (AUTO) 1.1 % (0.0-4.0); HEMATOCRIT 39.6 % (36-48); HEMOGLOBIN 13.8 g/dL (12.0-16.0); LYMPHOCYTES # (AUTO) 1.2 K/uL (2.5-16.5); LYMPHOCYTES % (AUTO) 46.9 % (20.5-51.1); MEAN CORPUSCULAR HEMOGLOBIN 32 pg (27-31); MEAN CORPUSCULAR HGB CONC 35 g/dL (33-37); MEAN CORPUSCULAR VOLUME 92.5 fL (80-94); MONOCYTES # (AUTO) 0.3 K/uL (0.8-1.0); MONOCYTES % (AUTO) 10.9 % (1.7-9.3); NEUTROPHILS % (AUTO) 40.2 % (42.2-75.2); PLATELET COUNT (AUTO) 138 K/uL (140-450); RED BLOOD CELL COUNT(AUTO) 4.28 MIL/uL (4.20-5.40); RED CELL DISTRIBUTION WIDTH 13.8 % (11.6-13.7); WHITE BLOOD COUNT (AUTO) 2.6 K/uL (4.8-10.8)
[2024-01-20 19:45] LABS: ANION GAP 11.4 (8-16); CALCIUM 9.3 mg/dL (8.5-10.1); CARBON DIOXIDE 26.4 mmol/L (21-32); CREATININE 0.8 mg/dL (0.6-1.3); POTASSIUM 3.8 mmol/L (3.5-5.1)
[2024-01-20 19:53] VITALS: BP 138/91; PULSE 88; RESP 18; TEMP 98.5; O2SAT 96
== END 2024-01-20 21:04 | disposition home or self-care (01) ==
LOC: MED 18:31
DX: M62.831 Muscle spasm of calf (principal); D72.819 Decreased white blood cell count, unspecified; Z79.84 Long term (current) use of oral hypoglycemic drugs; Z79.4 Long term (current) use of insulin; Z79.2 Long term (current) use of antibiotics; Z88.6 Allergy status to analgesic agent; Z88.2 Allergy status to sulfonamides; Z88.1 Allergy status to other antibiotic agents
CPT/HCPCS: 36415; 80048; 81025; 85025; 99283

== ENCOUNTER 2024-01-29 23:19 | Emergency (ER) | payer OTHER ==
[~2024-01-29] VITALS: Ht 162.6 cm; Wt 76.7 kg
[2024-01-29 23:29] VITALS: BP 118/81; PULSE 107; RESP 16; TEMP 99.5; O2SAT 98
[2024-01-30] MEDS ORDERED: PRED20TA5 PO (00:28)
[2024-01-30] MEDS ORDERED: ACET-8905 PO (00:28)
[2024-01-30 01:11] VITALS: BP 118/81; PULSE 106; RESP 16; TEMP 99.5; O2SAT 98
== END 2024-01-30 01:11 | disposition home or self-care (01) ==
LOC: MED 23:19
DX: J02.9 Acute pharyngitis, unspecified (principal); R50.9 Fever, unspecified; R03.0 Elevated blood-pressure reading, without diagnosis of hypertension; Z79.899 Other long term (current) drug therapy; Z98.890 Other specified postprocedural states; Z88.6 Allergy status to analgesic agent; Z88.2 Allergy status to sulfonamides; Z88.1 Allergy status to other antibiotic agents
CPT/HCPCS: 99283

== ENCOUNTER 2024-02-06 23:09 | Emergency (ER) | payer OTHER ==
[~2024-02-06] VITALS: Ht 162.6 cm; Wt 76.7 kg
[~2024-02-06 23:09] MED LIST changes: +ACET-8905 PO; +PRED20TA5 PO
[2024-02-06 23:32] VITALS: BP 129/91; PULSE 116; RESP 16; TEMP 97.2; O2SAT 100
[2024-02-07] MEDS: IBUPROFEN 600 MG TAB PO ONE (00:53)
[2024-02-07] MEDS ORDERED: TRAM50TA3 PO (01:35)
[2024-02-07 01:50] VITALS: BP 122/87; PULSE 80; RESP 18; TEMP 98; O2SAT 100
== END 2024-02-07 01:50 | disposition home or self-care (01) ==
LOC: MED 23:09
DX: S43.492A Other sprain of left shoulder joint, initial encounter (principal); J45.909 Unspecified asthma, uncomplicated; E11.9 Type 2 diabetes mellitus without complications; Z88.2 Allergy status to sulfonamides; Z79.1 Long term (current) use of non-steroidal anti-inflammatories (NSAID); Z88.8 Allergy status to other drugs, medicaments and biological substances; Z79.4 Long term (current) use of insulin; Z79.899 Other long term (current) drug therapy; Z98.890 Other specified postprocedural states; V49.88XA Car occupant (driver) (passenger) injured in other specified transport accidents, initial encounter; Y93.89 Activity, other specified; Y92.89 Other specified places as the place of occurrence of the external cause; Y99.8 Other external cause status
CPT/HCPCS: 73020; 99283